=== PATIENT | male | born 1980 | race African-American/Black ===

== ENCOUNTER 2016-12-16 14:35 | Emergency (ER) | payer OTHER ==
[2016-12-16 14:52] VITALS: BP 138/73; PULSE 95; TEMP 98.5; BMI 38.2
[2016-12-16] MEDS ORDERED: IBUPROFEN 600 MG TABLET (FP) PO ONE (15:28)
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
== END 2016-12-16 15:56 | disposition home or self-care (01) ==
LOC: JERFT 14:35
DX: S89.82XA Other specified injuries of left lower leg, initial encounter (principal); V43.52XA Car driver injured in collision with other type car in traffic accident, initial encounter; Y92.414 Local residential or business street as the place of occurrence of the external cause; Y93.89 Activity, other specified; Y99.8 Other external cause status; E10.9 Type 1 diabetes mellitus without complications; Z79.4 Long term (current) use of insulin
CPT/HCPCS: 99281-25

== ENCOUNTER 2018-08-09 20:07 | Emergency (ER) | payer BC ==
--- NOTE | 2018-08-09 20:13 | PDOC ---
History of Present Illness - General History Source: Patient Exam Limitations: No Limitations - History of Present Illness Initial Comments: 08/09/18 20:30 The patient is a 38-year-old male with a past medical history significant for HTN and IDDM (compliant with Novolog) presents to the emergency department with nausea and vomiting. The patient presents with 2 days of nausea and NBNB, clear vomiting. The patient reports he has difficulty keeping down food. The patient reports associated symptoms of abdominal pain. Denies urinary symptoms, testicular pain, diarrhea, fever, chills, sore throat. Denies sick contact. Denies admission for DKA. Allergies: NKDA Social history: None reported PCP: Devin Akins MD <Jennifer Sinha - Last Filed: 08/09/18 20:30> <Kathleen Judd - Last Filed: 08/09/18 23:18> - General Chief Complaint: Nausea/Vomiting Stated Complaint: NAUSEA/VOMITING Time Seen by Provider: 08/09/18 20:13 Past History <Jennifer Sinha - Last Filed: 08/09/18 20:30> - Past Medical History COPD: No Thyroid Disease: No - Suicide/Smoking/Psychosocial Hx Smoking History: Never smoked Have you smoked in the past 12 months: No Hx Alcohol Use: No Drug/Substance Use Hx: No Substance Use Type: None <Kathleen Judd - Last Filed: 08/09/18 23:18> - Past Medical History Allergies/Adverse Reactions: Allergies Allergy/AdvReac Type Severity Reaction Status Date / Time No Known Allergies Allergy Verified 04/28/18 17:42 Home Medications: Ambulatory Orders Insulin (Levemir) [Levemir Vial] 46 unit SQ DAILY 12/16/16 Insulin (Novolog) [Novolog -] 0 units SQ ASDIR 12/16/16 Ondansetron HCl [Zofran] 4 mg PO TID PRN #6 tablet 08/09/18 Review of Systems - Review of Systems Able to Perform ROS?: Yes Comments:: 08/09/18 20:30 GENERAL/CONSTITUTIONAL: No fever or chills. No weakness. HEAD, EYES, EARS, NOSE AND THROAT: No change in vision. No ear pain or discharge. No sore throat. CARDIOVASCULAR: No chest pain or shortness of breath. RESPIRATORY: No cough, wheezing, or hemoptysis. GASTROINTESTINAL: +Nausea and vomiting. +abdominal pain. No diarrhea or constipation. GENITOURINARY: No dysuria, frequency, or change in urination. MUSCULOSKELETAL: No joint or muscle swelling or pain. No neck or back pain. SKIN: No rash NEUROLOGIC: No headache, vertigo, loss of consciousness, or change in strength/ sensation. ENDOCRINE: No increased thirst. No abnormal weight change. HEMATOLOGIC/LYMPHATIC: No anemia, easy bleeding, or history of blood clots. ALLERGIC/IMMUNOLOGIC: No hives or skin allergy. <Jennifer Sinha - Last Filed: 08/09/18 20:30> *Physical Exam - Vital Signs Last Vital Signs Temp Pulse Resp BP Pulse Ox 97.9 F 109 H 16 135/90 100 08/09/18 20:11 08/09/18 20:11 08/09/18 20:11 08/09/18 20:11 08/09/18 20:11 - Physical Exam Comments: 08/09/18 20:34 GENERAL: Awake, alert, and fully oriented, in no acute distress LUNGS: Breath sounds equal, clear to auscultation bilaterally. No wheezes, and no crackles HEART: Regular rate and rhythm, normal S1 and S2, no murmurs, rubs or gallops ABDOMEN: Soft, nontender and nondistended. NEUROLOGICAL: Cranial nerves II through XII grossly intact. Normal speech, normal gait SKIN: no rashes. <Jennifer Sinha - Last Filed: 08/09/18 20:30> Moderate Sedation - Procedure Monitoring Vital Signs: Procedure Monitoring Vital Signs Temperature 97.9 F 08/09/18 20:11 Pulse Rate 109 H 08/09/18 20:11 Respiratory Rate 16 08/09/18 20:11 Blood Pressure 135/90 08/09/18 20:11 O2 Sat by Pulse Oximetry (%) 100 08/09/18 20:11 <Jennifer Sinha - Last Filed: 08/09/18 20:30> ED Treatment Course - LABORATORY CBC & Chemistry Diagram: 08/09/18 20:25 08/09/18 20:25 <Kathleen Judd - Last Filed: 08/09/18 23:18> Medical Decision Making - Medical Decision Making 08/09/18 21:54 Pt presents to the ED complaining of a two day history of non bloody non billious vomiting, without fever, abdominal pain or diarrhea. States that he has been compliant with his insulin. Labs show severe hyperglycemia without DKA. Will treat with IV hydration and insulin, treat nausea with zofran and reassess. Will likely discharge home if symptoms improve and hyperglycemia resolves. <Kathleen Judd - Last Filed: 08/09/18 23:18> *DC/Admit/Observation/Transfer - Attestations Scribe Attestion: 08/09/18 20:32 Documentation prepared by Jennifer Sinha, acting as manager medical device for Kathleen Judd MD. <Jennifer Sinha - Last Filed: 08/09/18 20:30> - Discharge Dispostion Decision to Admit order: No <Kathleen Judd - Last Filed: 08/09/18 23:18> Diagnosis at time of Disposition: Nausea and vomiting Qualifiers: Vomiting type: unspecified Vomiting Intractability: non-intractable Qualified Code(s): R11.2 - Nausea with vomiting, unspecified - Discharge Dispostion Disposition: HOME Condition at time of disposition: Good - Referrals Referrals: Devin Yeager MD [Primary Care Provider] - - Patient Instructions Printed Discharge Instructions: DI for Nausea -- Adult Additional Instructions: you came to the ED for nausea and vomiting. This is most likely caused by a virus. Your blood sugar was also very high, but came down after we gave you fluids and insulin in the ED. You should return to the ED for severe nausea and vomiting that doesn't resolve with the medication prescribed, fever, severe abdominal pain, bloody vomit or stool, other new or worsening symptoms. Make sure that you follow up with your doctor on Saturday. - Post Discharge Activity Forms/Work/School Notes: Back to Work
[2018-08-09] MEDS ORDERED: SODIUM CHLORIDE 0.9% 500 ML INFUS.BAG IV ONE ×3 (20:25→22:39)
[2018-08-09] MEDS ORDERED: ONDANSETRON 4 MG/2 ML VIAL IVPUSH ONE (20:25)
[2018-08-09 20:34] VITALS: BP 135/90; PULSE 109; TEMP 97.9; BMI 28.8
[2018-08-09] MEDS ORDERED: ONDANSETRON 4 MG/2 ML VIAL ONE (20:35)
[2018-08-09 21:01] LABS: BASO % 1.9 % (0-2.0); EOS % 0.1 % (0-4.5); HEMATOCRIT 45.2 % (35.4-49); HEMOGLOBIN 14.9 GM/dl (11.7-16.9); LYMPH % 14.2 % (8-40); MCH 28.5 pg (25.7-33.7); MEAN CELL VOLUME 86.3 fl (80-96); MEAN PLT VOLUME 9.3 fl (7.5-11.1); MONO % 5.2 % (3.8-10.2); NEUT % 78.6 % (42.8-82.8); PLATELET COUNT 403 K/MM3 (134-434); RBC 5.24 M/mm3 (4.00-5.60); RDW 11.3 % (11.9-15.9); WHITE BLOOD COUNT 10.9 K/mm3 (4.0-10.8)
[2018-08-09 21:17] LABS: ALBUMIN 4.6 g/dl (3.5-5.0); ALK PHOS 159 U/L (32-92); ANION GAP 15 MMOL/L (8-16); BILIRUBIN,TOTAL 1.7 mg/dl (0.2-1.0); BLOOD UREA NITROGEN 24 mg/dl (7-18); CALCIUM 9.9 mg/dl (8.4-10.2); CHLORIDE 86 mmol/L (98-107); CO2 28 mmol/L (22-28); CREATININE 1.2 mg/dl (0.6-1.3); POTASSIUM 4.4 mmol/L (3.5-5.1); SGOT/AST 21 U/L (10-42); SGPT/ALT 20 U/L (10-40); SODIUM 129 mmol/L (136-145); TOT PROT 8.9 g/dl (6.4-8.3)
[2018-08-09 21:26] LABS: GLUCOSE,RANDOM 508 mg/dl (74-106)
[2018-08-09] MEDS ORDERED: INSULIN REGULAR HUMAN 100 UNITS/ML *VIAL IVPUSH ONE (21:30)
[2018-08-09] MEDS ORDERED: INSULIN REGULAR HUMAN 100 UNITS/ML *VIAL ONE (21:34)
[2018-08-09 21:38] LABS: ACETONE SERUM NEGATIVE (NEGATIVE)
[2018-08-09] MEDS ORDERED: HEMOQUE TEST 1 EACH EACH ONE (22:33)
[2018-08-09 22:36] LABS: LIPASE 279 U/L (73-393)
[2018-08-09] MEDS ORDERED: MAG HYDROX/AL HYDROX/SIMETH 30 ML UNIT-DOSE CUP PO ONE (23:13)
[2018-08-09] MEDS ORDERED: MAG HYDROX/AL HYDROX/SIMETH 30 ML UNIT-DOSE CUP ONE (23:16)
== END 2018-08-09 23:24 | disposition home or self-care (01) ==
LOC: FER 20:07
PROC: 3E0337Z Introduction of Electrolytic and Water Balance Substance into Peripheral Vein, Percutaneous Approach (ICD-10-PCS; principal; 2018-08-09)
PROC: 3E033VG Introduction of Insulin into Peripheral Vein, Percutaneous Approach (ICD-10-PCS; 2018-08-09)
PROC: 3E033GC Introduction of Other Therapeutic Substance into Peripheral Vein, Percutaneous Approach (ICD-10-PCS; 2018-08-09)
DX: R11.2 Nausea with vomiting, unspecified (principal)
CPT/HCPCS: 36415; 80053; 82009; 82962; 83690; 85025; 99283-25

== ENCOUNTER 2019-03-11 15:41 | Inpatient (IN) | payer BC ==
--- NOTE | 2019-03-11 16:02 | PDOC ---
History of Present Illness - General Chief Complaint: Nausea/Vomiting Stated Complaint: VOMITING Time Seen by Provider: 03/11/19 15:46 History Source: Patient Exam Limitations: No Limitations - History of Present Illness Initial Comments: 03/11/19 15:57 Michael Landeros is a 39M with PMH IDDM presenting with 2 days nausea and vomiting. Reports have over 10 episodes of vomiting over the last 2 days starting at 4AM yesterday. Vomit is non-bloody and appears like prior meal. Last meal was spaghetti cooked at home by his mother, denies anyone else at home feeling similar symptoms or other sick contacts. Has had 2 loose stools today, as well as abdominal pain in the epigastric region. Denies headaches, fever/chills. chest pain, SOB, urinary sx. Past History - Past Medical History Allergies/Adverse Reactions: Allergies Allergy/AdvReac Type Severity Reaction Status Date / Time No Known Allergies Allergy Verified 03/11/19 15:44 Home Medications: Ambulatory Orders Amlodipine Besylate [Norvasc -] 10 mg PO DAILY 03/11/19 Atorvastatin Ca [Lipitor] 40 mg PO HS 03/11/19 Delafloxacin Meglumine [Baxdela] 450 mg PO DAILY 03/11/19 Hydrochlorothiazide [Hctz -] 12.5 mg PO DAILY 03/11/19 Lisinopril [Prinivil -] 40 mg PO DAILY 03/11/19 COPD: No Diabetes: Yes HTN: Yes Thyroid Disease: No - Suicide/Smoking/Psychosocial Hx Smoking History: Never smoked Have you smoked in the past 12 months: No Information on smoking cessation initiated: No Hx Alcohol Use: No Drug/Substance Use Hx: No Substance Use Type: None Review of Systems - Review of Systems Able to Perform ROS?: Yes Constitutional: No: Chills, Fever, Weakness HEENTM: No: Blurred Vision, Recent change in vision, Tinnitus Respiratory: No: Cough, Orthopnea, Shortness of Breath Cardiac (ROS): No: Chest Pain, Edema, Lightheadedness, Palpitations ABD/GI: Yes: Diarrhea (2 episodes liquid stools), Nausea, Vomiting (non-bloody non-bilious) : No: Burning, Dysuria, Discharge, Frequency, Hematuria Musculoskeletal: No: Back Pain, Joint Pain, Muscle Pain Integumentary: Yes: Other (Boil to RLE, seen by lineworker). No: Bruising, Erythema Neurological: Yes: Tremors. No: Headache, Numbness, Paresthesia Endocrine: No: Symptoms Reported Hematologic/Lymphatic: No: Symptoms Reported All Other Systems: Reviewed and Negative *Physical Exam - Vital Signs Last Vital Signs Temp Pulse Resp BP Pulse Ox 97.7 F 79 18 140/94 100 03/11/19 15:44 03/11/19 15:44 03/11/19 15:44 03/11/19 15:44 03/11/19 15:44 - Physical Exam General Appearance: Yes: Nourished, Appropriately Dressed, Mild Distress HEENT: positive: EOMI, Normal Voice, Symmetrical, Pharynx Normal. negative: Scleral Icterus (R), Scleral Icterus (L), Rhinorrhea Neck: positive: Supple. negative: Tender, Lymphadenopathy (R), Lymphadenopathy (L) Respiratory/Chest: positive: Lungs Clear, Normal Breath Sounds. negative: Chest Tender, Respiratory Distress, Crackles, Rales, Rhonchi, Wheezing, Dullness Cardiovascular: positive: Regular Rhythm, Regular Rate. negative: Edema, Murmur Gastrointestinal/Abdominal: positive: Normal Bowel Sounds, Tender (tenderness to deep palpation epigastric region, negative Aguayo's sign, no signs of hernia or organomegaly), Flat, Soft. negative: Organomegaly Musculoskeletal: positive: Normal Inspection. negative: CVA Tenderness, Decreased Range of Motion Extremity: positive: Normal Capillary Refill, Normal Range of Motion, Other (R foot wrapped in bandages). negative: Tender, Pedal Edema, Swelling Integumentary: positive: Normal Color, Dry, Cold Neurologic: positive: Fully Oriented, Alert, Normal Mood/Affect, Normal Response , Other (Moving all extremities spontaneously, no focal deficits noted.) ED Treatment Course - LABORATORY CBC & Chemistry Diagram: 03/11/19 16:20 03/11/19 16:20 Medical Decision Making - Medical Decision Making 03/11/19 16:16 Michael Landeros is a 39M with PMH IDDM presenting with 2 days nausea and vomiting. Given 2 day course without fevers, likely gastroenteritis 2/2 something he has eaten recently. Ddx includes pancreatitis, DKA given IDDM status, cholecystitis/ cholangitis/biliary colic. Will evaluate via: CBC CMP lipase serum acetone UA Treatment for nausea/vomitinL NS bolus Maalox 30mg if tolerated famotidine 20mg IV Zofran 4mg IV Will re-evaluate after IV fluids and medications. 03/11/19 18:11 Labs grossly normal, no DKA, no pancreatitis. Still having colicky epigastric pain concerning for gallbladder pathology despite normal LFTs. RUQ US ordered, shows anterior wall thickening and pericholecystic fluid consistent with cholecysitis without choledocholithiasis. Consult placed with Dr. Flores, recommends IVAbx, NPO, and tx to [facility]. 03/11/19 19:04 Patient to be transferred to [facility] for surgical evaluation, has PAs to prep ER first thing in the AM per Dr. Flores. Will be admitted under Dr. Ojeda. *DC/Admit/Observation/Transfer Diagnosis at time of Disposition: Cholecystitis Nausea and vomiting Qualifiers: Vomiting type: unspecified Vomiting Intractability: non-intractable Qualified Code(s): R11.2 - Nausea with vomiting, unspecified - Discharge Dispostion Decision to Admit order: Yes - Referrals - Patient Instructions - Post Discharge Activity
[2019-03-11] MEDS ORDERED: MAG HYDROX/AL HYDROX/SIMETH -MYLANTA- ORAL SUSPENSION PO ONE (16:09)
[2019-03-11] MEDS ORDERED: FAMOTIDINE 20 MG/50 ML IVPB 20 MG/50 ML MG IVPB ONE ×2 (16:09→16:13)
[2019-03-11] MEDS ORDERED: SODIUM CHLORIDE 1,000 ML IV STA (16:10)
[2019-03-11] MEDS ORDERED: ONDANSETRON 4 MG/2 ML VIAL IVPUSH ONE (16:11)
[2019-03-11] MEDS ORDERED: MAG HYDROX/AL HYDROX/SIMETH 30 ML UNIT-DOSE CUP ONE (16:13)
--- NOTE | 2019-03-11 16:13 | PDOC ---
Attending Attestation - Resident Resident Name: Michael Wilson - ED Attending Attestation I have performed the following: I have examined & evaluated the patient, The case was reviewed & discussed with the resident, I agree w/resident's findings & plan - HPI HPI: 03/11/19 16:09 39 YOM with h/o DM2, presenting with nausea, vomiting, loose BM x 2 days beginning yesterday. +epigastric AP. unable to tolerate PO intake. +suspicious food intake,mother's spaghetti meatballs. no travel. no other sick contacts. no f/c, cp, sob. - Physicial Exam PE: 03/11/19 16:11 Agree with the resident's HPI and PE as documented in the electronic medical record. awake, alert, moderate distress 2/2 vomiting and retching. EOMI, PERRL, nl conjunctiva, anicteric; neck supple. lungs clear, RRR, abdomen soft +epigastric TTP. Back nontender. no CVAT. TRUJILLO x4, no focal neuro deficits. No peripheral edema. normal color for ethnicity, WWP. 03/12/19 07:54 - Medical Decision Making 03/11/19 16:10 See HPI for details. Prior notes reviewed, including admissions, discharges and consultations. Vital signs reviewed, wnl. Vital Signs Temp Pulse Resp BP Pulse Ox 97.7 F 79 18 140/94 100 03/11/19 15:44 03/11/19 15:44 03/11/19 15:44 03/11/19 15:44 03/11/19 15:44 DDx abdominal pain: Renal colic, biliary colic, metabolic/electrolyte derangements. GERD, PUD, esophageal spasm, pancreatitis, hepatitis, constipation , colitis, gastroenteritis, cholecystitis, UTI, pyelonephritis, hernia, DKA, HHS , dehydration. laboratory results and imaging reviewed, basic labs and lytes wnl, notable for neg ketones, no AG, so doubt DKA. LFTs/lipase_normal, reassuring ED course -interventions: IVF, zofran, analgesia, pepcid, Maalox, reassess - biliary sono acute cholecystitis, acalculus. - IV flagyl and ceftriaxone, empiric abx - surg cs with Dr Flores, keep NPO, will see in am, further imaging as necessary , medical management and subsequently determine if surgery admit for acute acalculus cholecystitis, surgical and medical management, NPO, abx, pain control, IVF and hydration supportive care admit to Dr Ojeda, s/o to [facility] 03/12/19 07:55
[2019-03-11] MEDS ORDERED: ONDANSETRON 4 MG/2 ML VIAL ONE (16:14)
[2019-03-11] MEDS ORDERED: ACETAMINOPHEN 1000 MG/100 ML VIAL (NON FORMULARY) IVPB ONE (16:30)
[2019-03-11] MEDS ORDERED: ACETAMINOPHEN INJECTION 100 ML IVPB ONE (16:31)
[2019-03-11 16:51] LABS: BASO % 1.6 % (0-2.0); HEMATOCRIT 39.1 % (35.4-49); LYMPH % 13.9 % (8-40); MCH 29.1 pg (25.7-33.7); MCHC 33.3 g/dl (32.0-35.9); MEAN CELL VOLUME 87.4 fl (80-96); MONO % 4.8 % (3.8-10.2); NEUT % 79.7 % (42.8-82.8); PLATELET COUNT 317 K/MM3 (134-434); RBC 4.47 M/mm3 (4.00-5.60); RDW 11.4 % (11.9-15.9); WHITE BLOOD COUNT 7.7 K/mm3 (4.0-10.8)
[2019-03-11 16:53] LABS: ALBUMIN 4.4 g/dl (3.4-5.0); ALK PHOS 106 U/L (45-117); ANION GAP 8 MMOL/L (8-16); CALCIUM 9.6 mg/dl (8.5-10); CHLORIDE 98 mmol/L (98-107); CO2 31 mmol/L (21-32); GLUCOSE,RANDOM 189 mg/dl (74-106); POTASSIUM 3.4 mmol/L (3.5-5.1); SGOT/AST 19 U/L (15-37); SGPT/ALT 19 U/L (13-61); SODIUM 137 mmol/L (136-145); TOT PROT 8.3 g/dl (6.4-8.2)
[2019-03-11 16:56] LABS: ACETONE SERUM NEGATIVE (NEGATIVE)
[2019-03-11] MEDS ORDERED: CEFTRIAXONE 1,000 MG in DEXTROSE 5%-WATER - 50 ML IVPB ONE (17:54)
[2019-03-11] MEDS ORDERED: cefTRIAXone SODIUM 1 GM VIAL ONE (18:09)
[2019-03-11] MEDS ORDERED: morphine CARPU-JECT 4 MG/1 ML DISP.SYRIN IVPUSH ONE (18:40)
[2019-03-11] MEDS ORDERED: morphine SULFATE 4 MG/ML VIAL ONE (18:44)
[2019-03-11] MEDS ORDERED: METOCLOPRAMIDE HCL INJECTION 10 MG/2 ML VIAL IVPB ONE (19:09)
[2019-03-11] MEDS ORDERED: METOCLOPRAMIDE HCL INJECTION 10 MG/2 ML VIAL ONE (19:18)
--- NOTE | 2019-03-11 19:22 | HP ---
CHIEF COMPLAINT: Abdominal pain PCP/Endocrine: Dr. Devin Yeager, [facility] HISTORY OF PRESENT ILLNESS: 39 year-old male with a PMH significant for HTN and Type II IDDM (x 10 years), presented to the ED for evaluation of nausea, vomiting and abdominal pain. 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 Developed right sided flank pain, nausea and vomiting. The pain migrated to the mid upper abdomen. Patient describes pain as intermittent and severe. He has vomited numerous times, unable to keep any type of food or liquid down. Emesis is non-bloody, non-bilious. Denies fever, sweats , chills. 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; lives alone; single Smoking: never Alcohol: occasional Drugs: no Family History: Mother 50s a&w; father 50s a&w; half siblings a&w; uncle and grandmother with DM Allergies No Known Allergies Allergy (Verified 03/11/19 15:44) HOME MEDICATIONS: Home Medications Medication Instructions Recorded Amlodipine Besylate [Norvasc -] 10 mg PO DAILY 03/11/19 Atorvastatin Ca [Lipitor] 40 mg PO HS 03/11/19 Delafloxacin Meglumine [Baxdela] 450 mg PO DAILY 03/11/19 Hydrochlorothiazide [Hctz -] 12.5 mg PO DAILY 03/11/19 Lisinopril [Prinivil -] 40 mg PO DAILY 03/11/19 REVIEW OF SYSTEMS CONSTITUTIONAL: Absent: fever, chills, diaphoresis, generalized weakness, malaise, loss of appetite, weight change HEENT: Absent: rhinorrhea, nasal congestion, throat pain, throat swelling, difficulty swallowing, mouth swelling, ear pain, eye pain, visual changes CARDIOVASCULAR: Absent: chest pain, syncope, palpitations, irregular heart rate, lightheadedness , peripheral edema RESPIRATORY: Absent: cough, shortness of breath, dyspnea with exertion, orthopnea, wheezing, stridor, hemoptysis GASTROINTESTINAL: +abdominal pain, nausea, vomiting, diarrhea Absent: abdominal pain, abdominal distension, nausea, vomiting, diarrhea, constipation, melena, hematochezia GENITOURINARY: Absent: dysuria, frequency, urgency, hesitancy, hematuria, flank pain, genital pain MUSCULOSKELETAL: Absent: myalgia, arthralgia, joint swelling, back pain, neck pain SKIN: +right heel blister Absent: rash, itching, pallor HEMATOLOGIC/IMMUNOLOGIC: Absent: easy bleeding, easy bruising, lymphadenopathy, frequent infections ENDOCRINE: Absent: unexplained weight gain, unexplained weight loss, heat intolerance, cold intolerance NEUROLOGIC: Absent: headache, focal weakness or paresthesias, dizziness, unsteady gait, seizure, mental status changes, bladder or bowel incontinence PSYCHIATRIC: Absent: anxiety, depression, suicidal or homicidal ideation, hallucinations. PHYSICAL EXAMINATION Vital Signs - 24 hr 03/11/19 03/11/19 15:44 17:04 Temperature 97.7 F Pulse Rate 79 Respiratory 18 Rate Blood Pressure 140/94 O2 Sat by Pulse 100 100 Oximetry (%) GENERAL: Awake, alert, and fully oriented, in no acute distress. HEAD: Normal with no signs of trauma. EYES: Pupils equal, round and reactive to light, extraocular movements intact, sclera anicteric, conjunctiva clear. No lid lag. LUNGS: Breath sounds equal, clear to auscultation bilaterally. No wheezes, and no crackles. No accessory muscle use. HEART: Regular rate and rhythm, S1, S2, S3 ABDOMEN: Soft, nontender, not distended, hypoactive bowel sounds, no guarding, no rebound tenderness UPPER EXTREMITIES: 2+ pulses, warm, well-perfused. No cyanosis. No clubbing. No peripheral edema. LOWER EXTREMITIES: 2+ pulses, warm, well-perfused. No calf tenderness. No peripheral edema. NEUROLOGICAL: Cranial nerves II-XII intact. Normal speech. Normal gait. PSYCHIATRIC: Cooperative. Good eye contact. Appropriate mood and affect. SKIN: Wound right heel ~4cm x 4cm, skin excised; wound is clean, no erythema, no warmth, no drainage Laboratory Results - last 24 hr 03/11/19 03/11/19 03/11/19 16:20 16:20 16:20 WBC 7.7 RBC 4.47 Hgb 13.0 Hct 39.1 MCV 87.4 MCH 29.1 MCHC 33.3 RDW 11.4 L Plt Count 317 D MPV 9.0 Absolute Neuts (auto) 6.1 Neutrophils % 79.7 Lymphocytes % 13.9 Monocytes % 4.8 Eosinophils % 0.0 D Basophils % 1.6 Sodium 137 Potassium 3.4 L Chloride 98 Carbon Dioxide 31 Anion Gap 8 BUN 10.0 Creatinine 1.0 Est GFR (CKD-EPI)AfAm 110.94 Est GFR (CKD-EPI)NonAf 95.72 Random Glucose 189 H Calcium 9.6 Total Bilirubin 2.0 H AST 19 ALT 19 Alkaline Phosphatase 106 Total Protein 8.3 H Albumin 4.4 Lipase 147 Acetone, Qual Negative ASSESSMENT/PLAN 39 year-old male with a PMH significant for HTN, and IDDM, admitted for possible acute cholecystitis. Possible acute alcalculous cholecystitis --03/11 US: mild diffuse gallbladder wall thickening and possible trace pericholecystic fluid accumunlation suggestive of acute cholecystitis; no definite sonographic evidence of cholelithiasis; CBD unremarkable 0.4cm --total bili elevated. LFTs in am --start Zosyn --HIDA scan ordered --surgery Dr. Flores will follow Hypertension --continue lisinopril, amlodipine, HCTZ IDDM --Novolog sliding scale coverage while NPO --patient states his last A1C was 10 --takes Levemir 46U at night; will hold while NPO --A1C pending Blister right heel --developed while in [place] walking on hot pavement --seen by electrical prospecting engineer Dr. Pena who excised blister --was started on delafloxacin last Saturday but patient has not tolerated anything PO so has not been taking --Zosyn as above --topical wound care with silvadene daily, covered with Allevyn heel dressing FEN Fluids: NS @ 125mL/hr Electrolytes: replete as indicated Nutrition: NPO DVT prophylaxis: SCDs, avoid chemical prophylaxis for possible surgical intervention Dispo: continues to require inpatient care. Visit type - Emergency Visit Emergency Visit: Yes Care time: The patient presented to the Emergency Department on the above date and was hospitalized for further evaluation of their emergent condition. - New Patient This patient is new to me today: Yes Date on this admission: 03/11/19 - Critical Care Critical Care patient: No
[2019-03-11 19:47] LABS: INR 1.34 (0.82-1.09); PROTHROMBIN TIME (PATIENT) 14.9 SEC (10.2-13.0)
[2019-03-11] MEDS ORDERED: ONDANSETRON 4 MG/2 ML VIAL IVPUSH PRN (19:53)
[2019-03-11] MEDS ORDERED: SODIUM CHLORIDE 1,000 ML IV SCH (20:00)
[2019-03-11] MEDS ORDERED: PIPERACILLIN/TAZOBACTAM 4.5 GM VIAL IVPB ONE (20:46)
[2019-03-11] MEDS ORDERED: PIPERACILLIN/TAZOB 4.5 GM 4.5 GM in DEXTROSE 5%-WATER 100 ML IVPB SCH (21:00)
[2019-03-11] MEDS ORDERED: morphine CARPU-JECT 2 MG/1 ML DISP.SYRIN IVPUSH PRN (21:02)
[2019-03-11] MEDS ORDERED: morphine SULFATE 4 MG/ML VIAL IVPUSH PRN (21:04)
[2019-03-11] MEDS: PIPERACILLIN/TAZOB 4.5 GM 4.5 GM in DEXTROSE 5%-WATER 100 ML IVPB SCH (21:08)
[2019-03-11] MEDS: ATORVASTATIN CA 40 MG TABLET (FP) PO SCH (22:19)
[2019-03-11] MEDS: KCL 10 MEQ IVPB 10 MEQ/100 ML INFUS.BAG IVPB SCH ×2 (22:19→23:15)
[2019-03-11] MEDS: INSULIN SLIDING SCALE (NOVOLOG) 1 VIAL SQ SCH (22:21)
[2019-03-11 23:00] VITALS: BMI 29.3
[2019-03-12] MEDS: KCL 10 MEQ IVPB 10 MEQ/100 ML INFUS.BAG IVPB SCH ×4 (00:37→16:20)
[2019-03-12] MEDS ORDERED: DEXTROSE 5%-WATER 100 ML IVPB ONE ×2 (01:15→09:07)
[2019-03-12] MEDS ORDERED: PIPERACILLIN/TAZOBACTAM 4.5 GM VIAL IVPB ONE ×2 (01:15→09:08)
[2019-03-12] MEDS: HEPARIN NA (PORCINE) 5,000 UNITS/ML 1ML VIAL SQ SCH ×3 (02:29→18:20)
[2019-03-12] MEDS: PIPERACILLIN/TAZOB 4.5 GM 4.5 GM in DEXTROSE 5%-WATER 100 ML IVPB SCH ×2 (02:30→09:15)
[2019-03-12] MEDS: INSULIN SLIDING SCALE (NOVOLOG) 1 VIAL SQ SCH ×4 (07:25→21:37)
--- NOTE | 2019-03-12 07:45 | CONSULT ---
- Consultation REQUESTING PROVIDER: CONSULT REQUEST: We have been asked to surgically evaluate this patient for cholecystitis. PCP:Gwen Ojeda HISTORY OF PRESENT ILLNESS: Michael Landeros is a 39M with PMH IDDM presents with 2 days nausea and vomiting. Patient states he has had several episodes of vomiting over the last 2 days starting at 4AM Saturday. Vomit is non-bloody and appears like prior meal. Last meal was spaghetti cooked at home by his mother, denies anyone else at home feeling similar symptoms or other sick contacts. He also had 2 loose stools, as well as abdominal pain in the epigastric region. Denies headaches, fever/chills. chest pain, SOB, urinary sx. Past History - Past Medical History Allergies/Adverse Reactions: Allergies Allergy/AdvReac Type Severity Reaction Status Date / Time No Known Allergies Allergy Verified 03/11/19 15:44 Home Medications: Amlodipine Besylate [Norvasc -] 10 mg PO DAILY 03/11/19 Atorvastatin Ca [Lipitor] 40 mg PO HS 03/11/19 Delafloxacin Meglumine [Baxdela] 450 mg PO DAILY 03/11/19 Hydrochlorothiazide [Hctz -] 12.5 mg PO DAILY 03/11/19 Lisinopril [Prinivil -] 40 mg PO DAILY 03/11/19 COPD: No Diabetes: Yes HTN: Yes Thyroid Disease: No - Suicide/Smoking/Psychosocial Hx Smoking History: Never smoked Have you smoked in the past 12 months: No Information on smoking cessation initiated: No Hx Alcohol Use: No Drug/Substance Use Hx: No Substance Use Type: None Review of Systems Able to Perform ROS?: Yes Constitutional: No: Chills, Fever, Weakness HEENTM: No: Blurred Vision, Recent change in vision, Tinnitus Respiratory: No: Cough, Orthopnea, Shortness of Breath Cardiac (ROS): No: Chest Pain, Edema, Lightheadedness, Palpitations ABD/GI: Yes: Diarrhea (2 episodes liquid stools), Nausea, Vomiting (non-bloody non-bilious) : No: Burning, Dysuria, Discharge, Frequency, Hematuria Musculoskeletal: No: Back Pain, Joint Pain, Muscle Pain Integumentary: Yes: Other (Boil to RLE, seen by ab initio etl developer). No: Bruising, Erythema Neurological: Yes: Tremors. No: Headache, Numbness, Paresthesia Endocrine: No: Symptoms Reported Hematologic/Lymphatic: No: Symptoms Reported All Other Systems: Reviewed and Negative PHYSICAL EXAM: GENERAL: Awake, alert, and fully oriented, in no acute distress. HEAD: Normal with no signs of trauma. EYES: sclera anicteric, conjunctiva clear. LUNGS: Unlabored resp on RA, No accessory muscle use. ABDOMEN: Obese, Soft, minimal TTP at RUQ, not distended, no guarding, no rebound, no masses. MUSCULOSKELETAL: moving all extremities without restriction NEUROLOGICAL: Normal speech, gait not observed. PSYCH: Cooperative. Good eye contact. Appropriate mood and affect. SKIN: Warm, dry, normal turgor, no rashes or lesions noted. Vital Signs Temperature 98.3 F 03/12/19 06:00 Pulse Rate 68 03/12/19 06:00 Respiratory Rate 18 03/12/19 06:00 Blood Pressure 120/67 03/12/19 06:00 O2 Sat by Pulse Oximetry (%) 97 03/12/19 06:00 Lab Results WBC 7.7 K/mm3 (4.0-10.8) 03/11/19 16:20 RBC 4.47 M/mm3 (4.00-5.60) 03/11/19 16:20 Hgb 13.0 GM/dl (11.7-16.9) 03/11/19 16:20 Hct 39.1 % (35.4-49) 03/11/19 16:20 MCV 87.4 fl (80-96) 03/11/19 16:20 MCHC 33.3 g/dl (32.0-35.9) 03/11/19 16:20 RDW 11.4 % (11.9-15.9) L 03/11/19 16:20 Plt Count 317 K/MM3 (134-434) D 03/11/19 16:20 Sodium 137 mmol/L (136-145) 03/11/19 16:20 Potassium 3.4 mmol/L (3.5-5.1) L 03/11/19 16:20 Chloride 98 mmol/L (98-107) 03/11/19 16:20 Carbon Dioxide 31 mmol/L (21-32) 03/11/19 16:20 Anion Gap 8 MMOL/L (8-16) 03/11/19 16:20 BUN 10.0 mg/dl (7-18) 03/11/19 16:20 Creatinine 1.0 mg/dl (0.55-1.3) 03/11/19 16:20 Random Glucose 189 mg/dl (74-106) H 03/11/19 16:20 Calcium 9.6 mg/dl (8.5-10) 03/11/19 16:20 Blood Type O POSITIVE 03/11/19 19:10 Antibody Screen Negative 03/11/19 19:10 INR 1.34 (0.82-1.09) H 03/11/19 19:10 U/S gallbladder suggests cholecystitis with no evidence of cholelithiasis Problem List - Problems (1) Cholecystitis Assessment/Plan: 39yo with suspected cholecystitis. -HIDA scan today r/o cholelithiasis - NPO -IV ABX -Fluids -pain control -Surgery team to follow Evaluation and plan discussed with Dr Flores Code(s): K81.9 - CHOLECYSTITIS, UNSPECIFIED
[2019-03-12 08:06] LABS: BASO % 0.8 % (0-2.0); EOS % 0.4 % (0-4.5); HEMATOCRIT 35.3 % (35.4-49); HEMOGLOBIN 11.6 GM/dl (11.7-16.9); LYMPH % 22.1 % (8-40); MCH 29.1 pg (25.7-33.7); MEAN CELL VOLUME 88.1 fl (80-96); MEAN PLT VOLUME 8.6 fl (7.5-11.1); MONO % 9.5 % (3.8-10.2); NEUT % 67.2 % (42.8-82.8); PLATELET COUNT 243 K/MM3 (134-434); RDW 11.6 % (11.9-15.9); WHITE BLOOD COUNT 6.4 K/mm3 (4.0-10.8)
[2019-03-12 08:17] LABS: ALBUMIN 3.5 g/dl (3.4-5.0); BILIRUBIN,DIRECT 0.3 mg/dL (0.0-0.2); BILIRUBIN,TOTAL 1.9 mg/dl (0.2-1); CALCIUM 8.8 mg/dl (8.5-10); MAGNESIUM 1.8 mg/dL (1.8-2.4); TOT PROT 6.8 g/dl (6.4-8.2)
[2019-03-12] MEDS: amLODIPine BESYLATE 10 MG TABLET (FP) PO SCH (09:15)
[2019-03-12] MEDS: LISINOPRIL 20 MG TABLET (FP) PO SCH (09:15)
[2019-03-12] MEDS: HYDROCHLOROTHIAZIDE 12.5 MG CAPSULE (FP) PO SCH (09:15)
[2019-03-12] MEDS: SILVER SULFADIAZINE 1% TOP CREAM 50 GM JAR TP SCH (10:06)
[2019-03-12] MEDS ORDERED: POTASSIUM CHLORIDE TABS 20 MEQ TABLET.ER (FP) PO ONE (10:49)
[2019-03-12] MEDS: POTASSIUM CHLORIDE TABS 20 MEQ TABLET.ER (FP) PO SCH ×2 (11:00→17:10)
--- NOTE | 2019-03-12 11:41 | EKG ---
Test Reason : Blood Pressure : / mmHG Vent. Rate : 074 BPM Atrial Rate : 074 BPM P-R Int : 106 ms QRS Dur : 072 ms QT Int : 390 ms P-R-T Axes : 058 079 -19 degrees QTc Int : 432 ms SINUS RHYTHM WITH SINUS ARRHYTHMIA WITH SHORT HI NONSPECIFIC T WAVE ABNORMALITY ABNORMAL ECG NO PREVIOUS ECGS AVAILABLE Confirmed by HAYES MARION MD ([id number]) on 03/12/2019 11:40:38 AM Referred By: Confirmed By:HAYES MARION MD
--- NOTE | 2019-03-12 14:25 | PN ---
Physical Exam: SUBJECTIVE: Patient seen and examined after returning from HIDA scan. Abdominal pain was 10/10 last night in ED, 4/10 this morning, presently no pain. No nausea , no vomiting, tolerating first meal of clears. OBJECTIVE: Vital Signs Period Temp Pulse Resp BP Sys/Monroy Pulse Ox Last 24 Hr 97.7 F-99.0 F 68-115 18-18 117-140/62-94 93-100 GENERAL: Awake, alert, and fully oriented, in no acute distress. LUNGS: Breath sounds equal, clear to auscultation bilaterally. No wheezes, and no crackles. No accessory muscle use. HEART: Regular rate and rhythm, S1, S2, S3 ABDOMEN: Soft, nontender, not distended, UPPER EXTREMITIES: 2+ pulses, warm, well-perfused. No cyanosis. No clubbing. No peripheral edema. LOWER EXTREMITIES: 2+ pulses, warm, well-perfused. No calf tenderness. No peripheral edema. NEUROLOGICAL: Cranial nerves II-XII intact. Normal speech. Laboratory Results - last 24 hr 03/11/19 03/11/19 03/11/19 07:20 16:20 16:20 WBC 7.7 RBC 4.47 Hgb 13.0 Hct 39.1 MCV 87.4 MCH 29.1 MCHC 33.3 RDW 11.4 L Plt Count 317 D MPV 9.0 Absolute Neuts (auto) 6.1 Neutrophils % 79.7 Lymphocytes % 13.9 Monocytes % 4.8 Eosinophils % 0.0 D Basophils % 1.6 PT with INR INR PTT (Actin FS) Sodium 137 Potassium 3.4 L Chloride 98 Carbon Dioxide 31 Anion Gap 8 BUN 10.0 Creatinine 1.0 Est GFR (CKD-EPI)AfAm 110.94 Est GFR (CKD-EPI)NonAf 95.72 POC Glucometer Random Glucose 189 H Hemoglobin A1c % Calcium 9.6 Magnesium Total Bilirubin 2.0 H Direct Bilirubin AST 19 ALT 19 Alkaline Phosphatase 106 Total Protein 8.3 H Albumin 4.4 Lipase Acetone, Qual Negative Blood Type O POSITIVE Antibody Screen 03/11/19 03/11/19 03/11/19 16:20 16:20 19:10 WBC RBC Hgb Hct MCV MCH MCHC RDW Plt Count MPV Absolute Neuts (auto) Neutrophils % Lymphocytes % Monocytes % Eosinophils % Basophils % PT with INR INR PTT (Actin FS) 29.7 Sodium Potassium Chloride Carbon Dioxide Anion Gap BUN Creatinine Est GFR (CKD-EPI)AfAm Est GFR (CKD-EPI)NonAf POC Glucometer Random Glucose Hemoglobin A1c % 7.4 H Calcium Magnesium Total Bilirubin Direct Bilirubin AST ALT Alkaline Phosphatase Total Protein Albumin Lipase 147 Acetone, Qual Blood Type Antibody Screen 03/11/19 03/11/19 03/11/19 19:10 19:10 22:21 WBC RBC Hgb Hct MCV MCH MCHC RDW Plt Count MPV Absolute Neuts (auto) Neutrophils % Lymphocytes % Monocytes % Eosinophils % Basophils % PT with INR 14.9 H INR 1.34 H PTT (Actin FS) Sodium Potassium Chloride Carbon Dioxide Anion Gap BUN Creatinine Est GFR (CKD-EPI)AfAm Est GFR (CKD-EPI)NonAf POC Glucometer 182 Random Glucose Hemoglobin A1c % Calcium Magnesium Total Bilirubin Direct Bilirubin AST ALT Alkaline Phosphatase Total Protein Albumin Lipase Acetone, Qual Blood Type O POSITIVE Antibody Screen Negative 03/12/19 03/12/19 03/12/19 06:29 07:20 07:20 WBC 6.4 RBC 4.00 Hgb 11.6 L Hct 35.3 L MCV 88.1 MCH 29.1 MCHC 33.0 RDW 11.6 L Plt Count 243 D MPV 8.6 Absolute Neuts (auto) 4.3 Neutrophils % 67.2 Lymphocytes % 22.1 D Monocytes % 9.5 D Eosinophils % 0.4 D Basophils % 0.8 PT with INR INR PTT (Actin FS) Sodium 141 Potassium 3.0 L Chloride 103 Carbon Dioxide 30 Anion Gap 8 BUN 9.0 Creatinine 1.0 Est GFR (CKD-EPI)AfAm 110.94 Est GFR (CKD-EPI)NonAf 95.72 POC Glucometer 84 Random Glucose 91 Hemoglobin A1c % Calcium 8.8 Magnesium 1.8 Total Bilirubin 1.9 H Direct Bilirubin 0.3 H AST 17 ALT 17 Alkaline Phosphatase 83 D Total Protein 6.8 Albumin 3.5 Lipase Acetone, Qual Blood Type Antibody Screen Active Medications Generic Name Dose Route Start Last Admin Trade Name Freq PRN Reason Stop Dose Admin Amlodipine Besylate 10 mg 03/12/19 10:00 03/12/19 09:15 Norvasc - PO 10 mg DAILY CED Administration Atorvastatin Calcium 40 mg 03/11/19 22:00 03/11/19 22:19 Lipitor - PO 40 mg HS CED Administration Heparin Sodium (Porcine) 5,000 unit 03/12/19 02:00 03/12/19 09:17 Heparin - SQ Not Given Q8H-IV CED Hydrochlorothiazide 12.5 mg 03/12/19 10:00 03/12/19 09:15 Hctz - PO 12.5 mg DAILY CED Administration Sodium Chloride 1,000 mls @ 125 mls/hr 03/11/19 20:00 03/11/19 21:08 Normal Saline - IV 125 mls/hr ASDIR CED Administration Piperacillin Sod/Tazobactam 100 mls @ 200 mls/hr 03/11/19 21:00 03/12/19 09: 15 Sod 4.5 gm/ Dextrose IVPB 03/12/19 15:29 200 mls/hr Q6H-IV CED Administration Piperacillin Sod/Tazobactam 100 mls @ 200 mls/hr 03/11/19 21:15 Sod 4.5 gm/ Dextrose IVPB Q6H-IV [facility] Protocol Insulin Aspart 1 vial 03/11/19 22:00 03/12/19 07:25 Novolog Vial Sliding Scale - SQ Not Given ACHS [facility] Protocol Lisinopril 40 mg 03/12/19 10:00 03/12/19 09:15 Prinivil PO 40 mg DAILY CED Administration Morphine Sulfate 4 mg 03/11/19 21:04 03/12/19 09:15 Morphine Sulfate IVPUSH 4 mg Q4H PRN Administration PAIN LEVEL 6-10 Ondansetron HCl 4 mg 03/11/19 19:53 Zofran Injection IVPUSH Q6H PRN NAUSEA AND/OR VOMITING Potassium Chloride 40 meq 03/12/19 11:00 K-Dur - PO 03/12/19 17:01 Q6H CED Silver Sulfadiazine 1 applic 03/12/19 10:00 03/12/19 10:06 Silvadene - TP 1 applic DAILY CED Administration ASSESSMENT/PLAN 39 year-old male with a PMH significant for HTN, and IDDM, admitted for possible acute cholecystitis. Possible acute alcalculous cholecystitis --03/11 US: mild diffuse gallbladder wall thickening and possible trace pericholecystic fluid accumulation suggestive of acute cholecystitis; no definite sonographic evidence of cholelithiasis; CBD unremarkable 0.4cm\ --03/12 HIDA: negative for acute cystic duct obstruction --total bili elevated, transaminases wnl --continue Zosyn (day #2) Hypertension --continue lisinopril, amlodipine, HCTZ IDDM --A1C 7.4 --Novolog sliding scale coverage --takes Levemir 46U at night; will hold while NPO Blister right heel --Zosyn as above --topical wound care with silvadene daily, covered with Allevyn heel dressing FEN Fluids: NS @ 75mL/hr Electrolytes: replete as indicated Nutrition: diabetic clears DVT prophylaxis: SCDs, subq heparin Dispo: continues to require inpatient care. Visit type - Emergency Visit Emergency Visit: Yes ED Registration Date: 03/11/19 Care time: The patient presented to the Emergency Department on the above date and was hospitalized for further evaluation of their emergent condition. - New Patient This patient is new to me today: No - Critical Care Critical Care patient: No
--- NOTE | 2019-03-12 16:36 | CON.ID ---
Consult Consult Specialty:: infectious diseases - Alcohol/Substance Use Hx Alcohol Use: No - Smoking History Smoking history: Never smoked Have you smoked in the past 12 months: No Home Medications - Allergies Allergies/Adverse Reactions: Allergies Allergy/AdvReac Type Severity Reaction Status Date / Time No Known Allergies Allergy Verified 03/11/19 15:44 - Home Medications Home Medications: Ambulatory Orders Amlodipine Besylate [Norvasc -] 10 mg PO DAILY 03/11/19 Atorvastatin Ca [Lipitor] 40 mg PO HS 03/11/19 Delafloxacin Meglumine [Baxdela] 450 mg PO DAILY 03/11/19 Hydrochlorothiazide [Hctz -] 12.5 mg PO DAILY 03/11/19 Lisinopril [Prinivil -] 40 mg PO DAILY 03/11/19 Physical Exam Vital Signs: Vital Signs Temperature 98.4 F 03/12/19 14:45 Pulse Rate 70 03/12/19 14:45 Respiratory Rate 18 03/12/19 14:45 Blood Pressure 142/80 03/12/19 14:45 O2 Sat by Pulse Oximetry (%) 100 03/12/19 14:45 Labs: CBC, BMP 03/12/19 07:20 03/12/19 07:20
[2019-03-12] MEDS ORDERED: SODIUM CHLORIDE 1,000 ML IV SCH (17:47)
[2019-03-12] MEDS: PIPERACILLIN/TAZOB 3.375 GM 3.375 GM in DEXTROSE 5%-WATER - 50 ML IVPB SCH (18:15)
--- NOTE | 2019-03-12 19:04 | PN ---
Progress Note (short form) - Note Progress Note: Attending Surgeon No c/o; tolerated clears VSS AF abdo-soft; flat and non tender HIDA- negative for cystic duct obstruction and therefore acute cholecystitis WBC normal LFT's and bili noted. IMP: No acute surgical issue PLAN: Advance diet as tolerated; should have outpatient GI w/u. Dony Flores MD FACS
[2019-03-12] MEDS: ACETAMINOPHEN 325 MG TABLET (FP) PO PRN (19:30)
[2019-03-12] MEDS: ATORVASTATIN CA 40 MG TABLET (FP) PO SCH (21:33)
[2019-03-13] MEDS ORDERED: PIPERACILLIN/TAZOBACTAM 3.375 GM VIAL IVPB ONE ×4 (01:18→23:43)
[2019-03-13] MEDS ORDERED: DEXTROSE 5%-WATER - 50 ML IVPB ONE ×4 (01:19→23:43)
[2019-03-13] MEDS: PIPERACILLIN/TAZOB 3.375 GM 3.375 GM in DEXTROSE 5%-WATER - 50 ML IVPB SCH ×3 (01:26→17:28)
[2019-03-13] MEDS: HEPARIN NA (PORCINE) 5,000 UNITS/ML 1ML VIAL SQ SCH ×3 (01:27→17:26)
[2019-03-13] MEDS: PIPERACILLIN/TAZOB 4.5 GM 4.5 GM in DEXTROSE 5%-WATER 100 ML IVPB SCH ×2 (08:35→08:36)
[2019-03-13] MEDS: INSULIN SLIDING SCALE (NOVOLOG) 1 VIAL SQ SCH ×4 (08:35→21:40)
[2019-03-13] MEDS ORDERED: PT OWN MED DRAWER 7, Y5N ONE (09:25)
[2019-03-13] MEDS: amLODIPine BESYLATE 10 MG TABLET (FP) PO SCH (09:50)
[2019-03-13] MEDS: SILVER SULFADIAZINE 1% TOP CREAM 50 GM JAR TP SCH (09:50)
[2019-03-13] MEDS: LISINOPRIL 20 MG TABLET (FP) PO SCH (09:50)
[2019-03-13] MEDS: HYDROCHLOROTHIAZIDE 12.5 MG CAPSULE (FP) PO SCH (09:50)
--- NOTE | 2019-03-13 10:09 | PN ---
Progress Note, Physician History of Present Illness: patient stable no new issues pain last night now ok - Current Medication List Current Medications: Active Medications Acetaminophen (Tylenol -) 650 mg PO Q6H PRN PRN Reason: PAIN LEVEL 1-5 Last Admin: 03/12/19 19:30 Dose: 650 mg Amlodipine Besylate (Norvasc -) 10 mg PO DAILY CED Last Admin: 03/13/19 09:50 Dose: 10 mg Atorvastatin Calcium (Lipitor -) 40 mg PO HS CED Last Admin: 03/12/19 21:33 Dose: 40 mg Heparin Sodium (Porcine) (Heparin -) 5,000 unit SQ Q8H-IV CED Last Admin: 03/13/19 09:49 Dose: 5,000 unit Hydrochlorothiazide (Hctz -) 12.5 mg PO DAILY CED Last Admin: 03/13/19 09:50 Dose: 12.5 mg Piperacillin Sod/Tazobactam (Sod 3.375 gm/ Dextrose) 50 mls @ 100 mls/hr IVPB Q8H-IV CED; Protocol Last Admin: 03/13/19 09:50 Dose: 100 mls/hr Sodium Chloride (Normal Saline -) 1,000 mls @ 75 mls/hr IV ASDIR CED Last Admin: 03/12/19 19:25 Dose: 75 mls/hr Insulin Aspart (Novolog Vial Sliding Scale -) 1 vial SQ ACHS [facility]; Protocol Last Admin: 03/13/19 08:35 Dose: Not Given Lisinopril (Prinivil) 40 mg PO DAILY [facility] Last Admin: 03/13/19 09:50 Dose: 40 mg Ondansetron HCl (Zofran Injection) 4 mg IVPUSH Q6H PRN PRN Reason: NAUSEA AND/OR VOMITING Silver Sulfadiazine (Silvadene -) 1 applic TP DAILY [facility] Last Admin: 03/13/19 09:50 Dose: 1 applic - Objective Vital Signs: Vital Signs Temperature 98.1 F 03/13/19 09:43 Pulse Rate 63 03/13/19 09:43 Respiratory Rate 18 03/13/19 09:43 Blood Pressure 134/70 03/13/19 09:43 O2 Sat by Pulse Oximetry (%) 98 03/13/19 09:43 Constitutional: Yes: No Distress, Calm Cardiovascular: Yes: Regular Rate and Rhythm Respiratory: Yes: Regular, CTA Bilaterally Gastrointestinal: Yes: Normal Bowel Sounds, Soft Musculoskeletal: Yes: WNL Extremities: Yes: WNL Neurological: Yes: Alert, Oriented Psychiatric: Yes: Alert, Oriented Labs: CBC, BMP 03/12/19 07:20 03/12/19 07:20 INR, PTT INR 1.34 (0.82-1.09) H 03/11/19 19:10 Assessment/Plan 39 year-old male with a PMH significant for HTN, and IDDM, admitted for possible acute cholecystitis. Possible acute alcalculous cholecystitis Hypertension IDD Blister right heel plan hida scan results noted if patient tolerates oral we can switch to oral abx
[2019-03-13 11:18] LABS: BILIRUBIN,TOTAL 2.4 mg/dl (0.2-1); CALCIUM 8.5 mg/dl (8.5-10); CREATININE 0.9 mg/dl (0.55-1.3); MAGNESIUM 1.8 mg/dL (1.8-2.4); TOT PROT 7.6 g/dl (6.4-8.2)
[2019-03-13 11:24] LABS: BASO % 0.8 % (0-2.0); EOS % 0.5 % (0-4.5); HEMATOCRIT 38.3 % (35.4-49); HEMOGLOBIN 12.7 GM/dl (11.7-16.9); LYMPH % 20.7 % (8-40); MCH 29.3 pg (25.7-33.7); MCHC 33.1 g/dl (32.0-35.9); MEAN CELL VOLUME 88.7 fl (80-96); MEAN PLT VOLUME 8.3 fl (7.5-11.1); MONO % 8.5 % (3.8-10.2); NEUT % 69.5 % (42.8-82.8); PLATELET COUNT 274 K/MM3 (134-434); POTASSIUM 2.7 mmol/L (3.5-5.1); RBC 4.32 M/mm3 (4.00-5.60); RDW 11.4 % (11.9-15.9); WHITE BLOOD COUNT 6.6 K/mm3 (4.0-10.8)
--- NOTE | 2019-03-13 12:14 | PN ---
Physical Exam: SUBJECTIVE: Patient seen and examined. Last night had right upper quadrant pain , better now. Had large watery bowel movement last night, another one today. Tolerating food, no nausea, no vomiting. OBJECTIVE: Vital Signs Period Temp Pulse Resp BP Sys/Monroy Pulse Ox Last 24 Hr 98.1 F-98.4 F 63-76 18-18 114-142/59-80 95-100 GENERAL: Awake, alert, and fully oriented, in no acute distress. LUNGS: Breath sounds equal, clear to auscultation bilaterally. No wheezes, and no crackles. No accessory muscle use. HEART: Regular rate and rhythm, S1, S2, S3 ABDOMEN: Soft, nontender, not distended, UPPER EXTREMITIES: 2+ pulses, warm, well-perfused. No cyanosis. No clubbing. No peripheral edema. LOWER EXTREMITIES: 2+ pulses, warm, well-perfused. No calf tenderness. No peripheral edema. NEUROLOGICAL: Cranial nerves II-XII intact. Normal speech. Laboratory Results - last 24 hr 03/11/19 03/12/19 03/13/19 07:20 21:35 06:41 WBC RBC Hgb Hct MCV MCH MCHC RDW Plt Count MPV Absolute Neuts (auto) Neutrophils % Lymphocytes % Monocytes % Eosinophils % Basophils % Sodium Potassium Chloride Carbon Dioxide Anion Gap BUN Creatinine Est GFR (CKD-EPI)AfAm Est GFR (CKD-EPI)NonAf POC Glucometer 121 96 Random Glucose Calcium Magnesium Total Bilirubin AST ALT Alkaline Phosphatase Total Protein Albumin Blood Type O POSITIVE 03/13/19 03/13/19 03/13/19 10:55 10:55 11:09 WBC 6.6 RBC 4.32 Hgb 12.7 Hct 38.3 MCV 88.7 MCH 29.3 MCHC 33.1 RDW 11.4 L Plt Count 274 MPV 8.3 Absolute Neuts (auto) 4.5 Neutrophils % 69.5 Lymphocytes % 20.7 Monocytes % 8.5 Eosinophils % 0.5 Basophils % 0.8 Sodium 137 Potassium 2.7 L* Chloride 100 Carbon Dioxide 29 Anion Gap 8 BUN 7.0 Creatinine 0.9 Est GFR (CKD-EPI)AfAm 126.02 Est GFR (CKD-EPI)NonAf 108.73 POC Glucometer 101 Random Glucose 134 H Calcium 8.5 Magnesium 1.8 Total Bilirubin 2.4 H AST 26 ALT 26 Alkaline Phosphatase 108 D Total Protein 7.6 Albumin 4.0 Blood Type Active Medications Generic Name Dose Route Start Last Admin Trade Name Freq PRN Reason Stop Dose Admin Acetaminophen 650 mg 03/12/19 18:56 03/12/19 19:30 Tylenol - PO 650 mg Q6H PRN Administration PAIN LEVEL 1-5 Amlodipine Besylate 10 mg 03/12/19 10:00 03/13/19 09:50 Norvasc - PO 10 mg DAILY CED Administration Atorvastatin Calcium 40 mg 03/11/19 22:00 03/12/19 21:33 Lipitor - PO 40 mg HS CED Administration Heparin Sodium (Porcine) 5,000 unit 03/12/19 02:00 03/13/19 09:49 Heparin - SQ 5,000 unit Q8H-IV CED Administration Hydrochlorothiazide 12.5 mg 03/12/19 10:00 03/13/19 09:50 Hctz - PO 12.5 mg DAILY CED Administration Piperacillin Sod/Tazobactam 50 mls @ 100 mls/hr 03/12/19 18:00 03/13/19 09:50 Sod 3.375 gm/ Dextrose IVPB 100 mls/hr Q8H-IV CED Administration Protocol Potassium Chloride 40 meq/ 1,020 mls @ 125 mls/hr 03/13/19 12:15 Sodium Chloride IVPB 03/13/19 20:25 ASDIR CED Insulin Aspart 1 vial 03/11/19 22:00 03/13/19 11:14 Novolog Vial Sliding Scale - SQ Not Given ACHS [facility] Protocol Lisinopril 40 mg 03/12/19 10:00 03/13/19 09:50 Prinivil PO 40 mg DAILY ECD Administration Ondansetron HCl 4 mg 03/11/19 19:53 Zofran Injection IVPUSH Q6H PRN NAUSEA AND/OR VOMITING Potassium Chloride 40 meq 03/13/19 12:15 K-Dur - PO 03/13/19 18:16 Q6H CED Silver Sulfadiazine 1 applic 03/12/19 10:00 03/13/19 09:50 Silvadene - TP 1 applic DAILY CED Administration ASSESSMENT/PLAN 39 year-old male with a PMH significant for HTN, and IDDM, admitted for possible acute cholecystitis. Abdominal pain --possibly secondary to acute alcalculous cholecystitis based upon 03/11 US; HIDA scan negative; no surgical intervention --still with episodic RUQ pain, diarrhea, rising bilirubin --CTAP with contrast pending --continue Zosyn (day #2) --ID following Diarrhea --send c. diff, occult stool, stool culture Hypokalemia --K 2.7 --replete with PO & IV --repeat bmp 6:00pm --ECG Hypertension --continue lisinopril, amlodipine; hold HCTZ due to hypoK IDDM --A1C 7.4 --at home takes Levemir 46U at night; during this stay, insulin requirements have been minimal, 2U over 48 hours; no long-acting insulin; Novolog sliding scale coverage only Blister right heel --topical wound care with silvadene daily, covere with Allevyn heel dressing FEN Fluids: NS+40K@75mL/hr Electrolytes: replete as indicated Nutrition: diabetic clears DVT prophylaxis: SCDs, subq heparin Dispo: continues to require inpatient care. Visit type - Emergency Visit Emergency Visit: Yes ED Registration Date: 03/11/19 Care time: The patient presented to the Emergency Department on the above date and was hospitalized for further evaluation of their emergent condition. - New Patient This patient is new to me today: No - Critical Care Critical Care patient: No
[2019-03-13] MEDS ORDERED: MAGNESIUM OXIDE 400 MG TABLET (FP) PO ONE (12:15)
[2019-03-13] MEDS ORDERED: SODIUM CHLORIDE 1,000 ML with POTASSIUM CHLORIDE 40 MEQ IVPB SCH (12:15)
[2019-03-13] MEDS: POTASSIUM CHLORIDE TABS 20 MEQ TABLET.ER (FP) PO SCH ×2 (12:34→17:26)
[2019-03-13] MEDS: ACETAMINOPHEN 325 MG TABLET (FP) PO PRN ×2 (15:00→22:30)
[2019-03-13] MEDS ORDERED: INSULIN (NOVOLOG) ASPART 100 UNITS/ML 10ML VIAL ONE ×2 (16:16→21:24)
[2019-03-13 18:30] LABS: CALCIUM 8.2 mg/dl (8.5-10); MAGNESIUM 1.9 mg/dL (1.8-2.4)
[2019-03-13 18:52] LABS: POTASSIUM 2.7 mmol/L (3.5-5.1)
[2019-03-13 19:17] LABS: BILIRUBIN,DIRECT 0.2 mg/dL (0.0-0.2)
[2019-03-13] MEDS ORDERED: POTASSIUM CHLORIDE TABS 20 MEQ TABLET.ER (FP) PO ONE (19:34)
[2019-03-13] MEDS: KCL 10 MEQ IVPB 10 MEQ/100 ML INFUS.BAG IVPB SCH ×3 (20:05→23:10)
[2019-03-13] MEDS: ATORVASTATIN CA 40 MG TABLET (FP) PO SCH (21:39)
[2019-03-14] MEDS ORDERED: ONDANSETRON 4 MG/2 ML VIAL IVPUSH PRN (01:34)
[2019-03-14] MEDS: PIPERACILLIN/TAZOB 3.375 GM 3.375 GM in DEXTROSE 5%-WATER - 50 ML IVPB SCH (01:44)
[2019-03-14] MEDS: HEPARIN NA (PORCINE) 5,000 UNITS/ML 1ML VIAL SQ SCH ×3 (01:45→17:12)
[2019-03-14 02:11] LABS: POTASSIUM 3.7 mmol/L (3.5-5.1)
[2019-03-14 02:12] LABS: CALCIUM 8.4 mg/dL (8.5-10.1); MAGNESIUM 2.1 mg/dL (1.8-2.4)
[2019-03-14] MEDS ORDERED: METOCLOPRAMIDE HCL INJECTION 10 MG/2 ML VIAL IVPB ONE (02:36)
--- NOTE | 2019-03-14 02:50 | ED.PROV ---
Physicial Exam I saw and examined the patient. - Vital Signs Last Vital Signs Temp Pulse Resp BP Pulse Ox 98.0 F 82 18 139/89 99 03/13/19 23:49 03/13/19 23:49 03/13/19 23:49 03/13/19 23:49 03/13/19 23:49 Critical Care Time/[facility] Note - Medical Decision Making Note: 03/14/19 02:40 Asked to see this patient with persistent vomiting after 2 doses of Zofran IV 4 mg . Patient was admitted 2 days ago with presumptive diagnosis of acalculous cholecystitis. Subsequent workup has ruled this out and patient had done well on clear liquid diet. Diet was advanced over the last 12 hours to soft solids. Patient last ate at dinner and nausea/vomiting developed through the evening. Vomitus has consisted of semi-digested food without blood/coffee grounds. The patient also has persistent watery diarrhea through the last several hours. Of note, potassium level of 2.7 earlier in the evening , now normal at 3.7 after potassium replacement. On examination, the patient is complaining of persistent nausea and discomfort in the epigastrium/right upper quadrant of his abdomen.-Vital signs: 139/89, heart rate 82/minute, patient is afebrile with temperature 98F orally. Abdominal exam reveals normal bowel sounds, soft nondistended abdomen with minimal epigastric/RUQ tenderness ( no rebound/ guarding). Assessment: Recurrent vomiting/diarrhea of unclear etiology after advancement of diet. Findings discussed with ASA Dillard from [facility] service. Since Zofran is currently ineffective, Reglan 10 mgIVPB will be given and patient kept NPO until further assessment in the morning. Chemistry profile and CBC will be drawn with morning labs
[2019-03-14] MEDS: INSULIN SLIDING SCALE (NOVOLOG) 1 VIAL SQ SCH ×4 (06:41→21:51)
[2019-03-14 08:08] LABS: HEMATOCRIT 34.2 % (35.4-49); HEMOGLOBIN 11.5 GM/dl (11.7-16.9); MCH 29.8 pg (25.7-33.7); MCHC 33.6 g/dl (32.0-35.9); MEAN CELL VOLUME 88.6 fl (80-96); MEAN PLT VOLUME 8.6 fl (7.5-11.1); PLATELET COUNT 228 K/MM3 (134-434); RBC 3.86 M/mm3 (4.00-5.60); RDW 11.8 % (11.9-15.9); WHITE BLOOD COUNT 6.9 K/mm3 (4.0-10.8)
--- NOTE | 2019-03-14 08:21 | PN ---
Progress Note, Physician History of Present Illness: 39M with PMH IDDM presented with 2 days nausea and vomiting. Patient states he has had several episodes of vomiting for 2 days prior to admission starting at 4AM Saturday. Vomit is non-bloody and appears like prior meal. Last meal was spaghetti cooked at home by his mother, denies anyone else at home feeling similar symptoms or other sick contacts. He also had 2 loose stools, as well as abdominal pain in the epigastric region. Denies headaches, fever/chills. chest pain, SOB, urinary sx, no recent travel - Current Medication List Current Medications: Active Medications Acetaminophen (Tylenol -) 650 mg PO Q6H PRN PRN Reason: PAIN LEVEL 1-5 Last Admin: 03/13/19 22:30 Dose: 650 mg Amlodipine Besylate (Norvasc -) 10 mg PO DAILY [facility] Last Admin: 03/13/19 09:50 Dose: 10 mg Atorvastatin Calcium (Lipitor -) 40 mg PO HS CED Last Admin: 03/13/19 21:39 Dose: 40 mg Heparin Sodium (Porcine) (Heparin -) 5,000 unit SQ Q8H-IV CED Last Admin: 03/14/19 01:45 Dose: 5,000 unit Hydrochlorothiazide (Hctz -) 12.5 mg PO DAILY [facility] Last Admin: 03/13/19 09:50 Dose: 12.5 mg Piperacillin Sod/Tazobactam (Sod 3.375 gm/ Dextrose) 50 mls @ 100 mls/hr IVPB Q8H-IV [facility]; Protocol Last Admin: 03/14/19 01:44 Dose: 100 mls/hr Insulin Aspart (Novolog Vial Sliding Scale -) 1 vial SQ ACHS [facility]; Protocol Last Admin: 03/14/19 06:41 Dose: Not Given Lisinopril (Prinivil) 40 mg PO DAILY [facility] Last Admin: 03/13/19 09:50 Dose: 40 mg Ondansetron HCl (Zofran Injection) 4 mg IVPUSH Q4H PRN PRN Reason: NAUSEA AND/OR VOMITING Last Admin: 03/14/19 01:44 Dose: 4 mg Silver Sulfadiazine (Silvadene -) 1 applic TP DAILY [facility] Last Admin: 03/13/19 09:50 Dose: 1 applic - Objective Vital Signs: Vital Signs Temperature 98.9 F 03/14/19 06:00 Pulse Rate 84 03/14/19 06:00 Respiratory Rate 18 03/14/19 06:00 Blood Pressure 133/59 L 03/14/19 06:00 O2 Sat by Pulse Oximetry (%) 98 03/14/19 06:00 Constitutional: Yes: Well Nourished, No Distress, Mild Distress Eyes: Yes: WNL, Conjunctiva Clear, EOM Intact HENT: Yes: WNL, Atraumatic, Normocephalic Neck: Yes: WNL, Supple, Trachea Midline Cardiovascular: Yes: WNL, Regular Rate and Rhythm Respiratory: Yes: WNL, Regular, CTA Bilaterally Gastrointestinal: Yes: Normal Bowel Sounds, Soft, Tenderness, Epigastrium Genitourinary: Yes: WNL Breast(s): Yes: WNL Musculoskeletal: Yes: WNL Extremities: Yes: WNL Edema: No Peripheral Pulses WNL: Yes Integumentary: Yes: WNL Neurological: Yes: WNL, Alert, Oriented ...Motor Strength: WNL Psychiatric: Yes: WNL, Alert, Oriented Labs: CBC, BMP 03/14/19 07:15 INR, PTT INR 1.34 (0.82-1.09) H 03/11/19 19:10 - ....Imaging Cat Scan: Report Reviewed (Abd CT: normal) Other: Report Reviewed (HIDA: no acute cholecyctitis) Problem List - Problems (1) Abdominal pain Assessment/Plan: abdominal pain persists after meal yesterday, resoling with antiemetics CT unremarkable-small amt of pericholecystic fluid accumulation seen c/w reglan standing and zofran PRN c/w IVF @ 125cc/hr until tolerating diet f/u stool studies IV/PO tylenol prn abx stopped as per ID, will monitor off Code(s): R10.9 - UNSPECIFIED ABDOMINAL PAIN (2) Diabetes Assessment/Plan: novolog sliding scale AC/qHS diabetic diet Code(s): E11.9 - TYPE 2 DIABETES MELLITUS WITHOUT COMPLICATIONS (3) Prophylactic measure Assessment/Plan: FEN IVF NS at 125cc/hr monitor electrolytes diabetic diet DVT heparin sq Dispo maintain inpatient full code discharge planning Code(s): Z29.9 - ENCOUNTER FOR PROPHYLACTIC MEASURES, UNSPECIFIED (4) Nausea and vomiting Assessment/Plan: change reglan to standing q6H zofran prn f/u stool studies Code(s): R11.2 - NAUSEA WITH VOMITING, UNSPECIFIED Qualifiers: Vomiting type: unspecified Vomiting Intractability: non-intractable Qualified Code(s): R11.2 - Nausea with vomiting, unspecified Visit type - Emergency Visit Emergency Visit: Yes ED Registration Date: 03/11/19 Care time: The patient presented to the Emergency Department on the above date and was hospitalized for further evaluation of their emergent condition. - New Patient This patient is new to me today: Yes Date on this admission: 03/14/19 - Critical Care Critical Care patient: No - Discharge Referral Referred to [facility] Med P.C.: No
[2019-03-14 08:37] LABS: ALBUMIN 3.6 g/dl (3.4-5.0); BILIRUBIN,TOTAL 1.9 mg/dl (0.2-1); CALCIUM 8.4 mg/dl (8.5-10); CREATININE 0.8 mg/dl (0.55-1.3); POTASSIUM 3.8 mmol/L (3.5-5.1); TOT PROT 6.8 g/dl (6.4-8.2)
[2019-03-14] MEDS ORDERED: INSULIN (NOVOLOG) ASPART 100 UNITS/ML 10ML VIAL SQ ONE (08:58)
--- NOTE | 2019-03-14 08:58 | PN ---
Progress Note, Physician History of Present Illness: patient not feeling well says pain in the belly and ruq nausea and throwing up - Current Medication List Current Medications: Active Medications Acetaminophen (Tylenol -) 650 mg PO Q6H PRN PRN Reason: PAIN LEVEL 1-5 Last Admin: 03/13/19 22:30 Dose: 650 mg Amlodipine Besylate (Norvasc -) 10 mg PO DAILY [facility] Last Admin: 03/13/19 09:50 Dose: 10 mg Atorvastatin Calcium (Lipitor -) 40 mg PO HS [facility] Last Admin: 03/13/19 21:39 Dose: 40 mg Heparin Sodium (Porcine) (Heparin -) 5,000 unit SQ Q8H-IV [facility]ED Last Admin: 03/14/19 01:45 Dose: 5,000 unit Hydrochlorothiazide (Hctz -) 12.5 mg PO DAILY [facility] Last Admin: 03/13/19 09:50 Dose: 12.5 mg Piperacillin Sod/Tazobactam (Sod 3.375 gm/ Dextrose) 50 mls @ 100 mls/hr IVPB Q8H-IV [facility]; Protocol Last Admin: 03/14/19 01:44 Dose: 100 mls/hr Insulin Aspart (Novolog Vial Sliding Scale -) 1 vial SQ ACHS [facility]; Protocol Last Admin: 03/14/19 06:41 Dose: Not Given Lisinopril (Prinivil) 40 mg PO DAILY [facility] Last Admin: 03/13/19 09:50 Dose: 40 mg Ondansetron HCl (Zofran Injection) 4 mg IVPUSH Q4H PRN PRN Reason: NAUSEA AND/OR VOMITING Last Admin: 03/14/19 01:44 Dose: 4 mg Silver Sulfadiazine (Silvadene -) 1 applic TP DAILY [facility] Last Admin: 03/13/19 09:50 Dose: 1 applic - Objective Vital Signs: Vital Signs Temperature 98.9 F 03/14/19 06:00 Pulse Rate 84 03/14/19 06:00 Respiratory Rate 18 03/14/19 06:00 Blood Pressure 133/59 L 03/14/19 06:00 O2 Sat by Pulse Oximetry (%) 98 03/14/19 06:00 Constitutional: Yes: Calm, Moderate Distress Cardiovascular: Yes: Regular Rate and Rhythm Respiratory: Yes: Regular, CTA Bilaterally Gastrointestinal: Yes: Soft, Tenderness (rt sided of the abd) Musculoskeletal: Yes: WNL Extremities: Yes: WNL Neurological: Yes: Alert, Oriented Psychiatric: Yes: Alert, Oriented Labs: CBC, BMP 03/14/19 07:15 03/14/19 07:15 INR, PTT INR 1.34 (0.82-1.09) H 03/11/19 19:10 - ....Imaging Cat Scan: Report Reviewed, Image Reviewed Assessment/Plan 39 year-old male with a PMH significant for HTN, and IDDM, admitted for possible acute cholecystitis. Possible acute alcalculous cholecystitis Hypertension IDD Blister right heel rt abd pain plan ct scan seen results noted can stop abx and watch
[2019-03-14] MEDS ORDERED: INSULIN (NOVOLOG) ASPART 100 UNITS/ML 10ML VIAL ONE (09:33)
[2019-03-14] MEDS: amLODIPine BESYLATE 10 MG TABLET (FP) PO SCH (10:19)
[2019-03-14] MEDS: METOCLOPRAMIDE HCL INJECTION 10 MG/2 ML VIAL IVPUSH SCH ×3 (10:19→21:48)
[2019-03-14] MEDS: LISINOPRIL 20 MG TABLET (FP) PO SCH (10:19)
[2019-03-14] MEDS: HYDROCHLOROTHIAZIDE 12.5 MG CAPSULE (FP) PO SCH (10:20)
[2019-03-14] MEDS: SILVER SULFADIAZINE 1% TOP CREAM 50 GM JAR TP SCH (10:21)
[2019-03-14] MEDS: SODIUM CHLORIDE 1,000 ML IV SCH ×2 (11:56→21:48)
[2019-03-14 12:12] LABS: INR 1.35 (0.82-1.09)
[2019-03-14] MEDS: ATORVASTATIN CA 40 MG TABLET (FP) PO SCH (21:48)
[2019-03-15] MEDS: HEPARIN NA (PORCINE) 5,000 UNITS/ML 1ML VIAL SQ SCH (01:47)
[2019-03-15] MEDS: METOCLOPRAMIDE HCL INJECTION 10 MG/2 ML VIAL IVPUSH SCH (05:13)
[2019-03-15] MEDS: INSULIN SLIDING SCALE (NOVOLOG) 1 VIAL SQ SCH (06:16)
[2019-03-15 06:32] VITALS: BP 141/75; PULSE 86; TEMP 98.6
[2019-03-15 09:27] LABS: BASO % 0.8 % (0-2.0); EOS % 0.6 % (0-4.5); HEMATOCRIT 32.7 % (35.4-49); HEMOGLOBIN 10.5 GM/dl (11.7-16.9); LYMPH % 25.9 % (8-40); MCH 28.8 pg (25.7-33.7); MCHC 32.1 g/dl (32.0-35.9); MEAN CELL VOLUME 89.7 fl (80-96); MONO % 10.8 % (3.8-10.2); NEUT % 61.9 % (42.8-82.8); PLATELET COUNT 199 K/MM3 (134-434); RBC 3.65 M/mm3 (4.00-5.60); RDW 11.6 % (11.9-15.9); WHITE BLOOD COUNT 5.4 K/mm3 (4.0-10.8)
[2019-03-15 09:47] LABS: ALBUMIN 3.3 g/dl (3.4-5.0); BILIRUBIN,TOTAL 2.2 mg/dl (0.2-1); CALCIUM 8.2 mg/dl (8.5-10); CREATININE 0.9 mg/dl (0.55-1.3); MAGNESIUM 1.8 mg/dL (1.8-2.4); POTASSIUM 2.9 mmol/L (3.5-5.1); TOT PROT 6.3 g/dl (6.4-8.2)
[2019-03-15] MEDS ORDERED: POTASSIUM CHLORIDE TABS 20 MEQ TABLET.ER (FP) PO ONE (09:51)
--- NOTE | 2019-03-15 09:51 | DS ---
Physical Exam: SUBJECTIVE: Patient seen and examined OBJECTIVE: Vital Signs Period Temp Pulse Resp BP Sys/Monroy Pulse Ox Last 24 Hr 97.8 F-99.6 F 78-86 17-20 123-153/58-85 93-98 PHYSICAL EXAM GENERAL: The patient is awake, alert, and fully oriented, in no acute distress. HEAD: Normal with no signs of trauma. EYES: PERRL, extraocular movements intact, sclera anicteric, conjunctiva clear. ENT: Ears normal, nares patent, oropharynx clear without exudates, moist mucous membranes. NECK: Trachea midline, full range of motion, supple. LUNGS: Breath sounds equal, clear to auscultation bilaterally, no wheezes, no crackles, no accessory muscle use. HEART: Regular rate and rhythm, S1, S2 without murmur, rub or gallop. ABDOMEN: Soft, nontender, nondistended, normoactive bowel sounds, no guarding, no rebound, no hepatosplenomegaly, no masses. EXTREMITIES: 2+ pulses, warm, well-perfused, no edema. NEUROLOGICAL: Cranial nerves II through XII grossly intact. Normal speech, gait not observed. PSYCH: Normal mood, normal affect. SKIN: Warm, dry, normal turgor, no rashes or lesions noted. LABS Laboratory Results - last 24 hr 03/14/19 03/14/19 03/14/19 11:13 11:45 16:24 WBC RBC Hgb Hct MCV MCH MCHC RDW Plt Count MPV Absolute Neuts (auto) Neutrophils % Lymphocytes % Monocytes % Eosinophils % Basophils % PT with INR 15.0 H INR 1.35 H POC Glucometer 194 139 03/14/19 03/15/19 03/15/19 21:49 06:00 06:15 WBC 5.4 RBC 3.65 L Hgb 10.5 L Hct 32.7 L MCV 89.7 MCH 28.8 MCHC 32.1 RDW 11.6 L Plt Count 199 MPV 9.0 Absolute Neuts (auto) 3.4 Neutrophils % 61.9 Lymphocytes % 25.9 D Monocytes % 10.8 H Eosinophils % 0.6 Basophils % 0.8 PT with INR INR POC Glucometer 143 141 HOSPITAL COURSE: Date of Admission:03/11/19 Date of Discharge: 03/15/19 Minutes to complete discharge: 30 Discharge Summary Reason For Visit: CHOLECYSTITIS Current Active Problems Abdominal pain (Acute) Diabetes (Acute) Prophylactic measure (Acute) Hospital Course: 39M with PMH IDDM presented with 2 days nausea and vomiting. Patient states he has had several episodes of vomiting for 2 days prior to admission starting at 4AM Saturday. Vomit is non-bloody and appears like prior meal. Last meal was spaghetti cooked at home by his mother, denies anyone else at home feeling similar symptoms or other sick contacts. He also had 2 loose stools, as well as abdominal pain in the epigastric region. Constitutional: Yes: Well Nourished, No Distress, Mild Distress Eyes: Yes: WNL, Conjunctiva Clear, EOM Intact HENT: Yes: WNL, Atraumatic, Normocephalic Neck: Yes: WNL, Supple, Trachea Midline Cardiovascular: Yes: WNL, Regular Rate and Rhythm Respiratory: Yes: WNL, Regular, CTA Bilaterally Gastrointestinal: Yes: Normal Bowel Sounds, Soft, Tenderness, Epigastrium Genitourinary: Yes: WNL Breast(s): Yes: WNL Musculoskeletal: Yes: WNL Extremities: Yes: WNL Edema: No Peripheral Pulses WNL: Yes Integumentary: Yes: WNL Neurological: Yes: WNL, Alert, Oriented ...Motor Strength: WNL Psychiatric: Yes: WNL, Alert, Oriented ....Imaging Cat Scan: Report Reviewed (Abd CT: normal) Other: Report Reviewed (HIDA: no acute cholecyctitis) Problem List - Problems (1) Abdominal pain Assessment/Plan: Abdominal pain resolved CT unremarkable-small amt of pericholecystic fluid accumulation seen Improved with Reglan-prescribed for an additional 5 days All stool studies negative Abx stopped after 3 days and no reutn of fevers or leukocytosis Code(s): R10.9 - UNSPECIFIED ABDOMINAL PAIN (2) Diabetes Assessment/Plan: novolog sliding scale AC/qHS while in patinet BG well controlled Resume regime on discharge continue diabetic diet advising to keep meals light after discharge Code(s): E11.9 - TYPE 2 DIABETES MELLITUS WITHOUT COMPLICATIONS (3) Prophylactic measure Assessment/Plan: Treated with IVF NS at 125cc/hr stopped morning of discharge. Encouraged patient to stay well hydrated DVT heparin sq while in aptient. No need for anticaogulation after discharge Code(s): Z29.9 - ENCOUNTER FOR PROPHYLACTIC MEASURES, UNSPECIFIED (4) Nausea and vomiting Assessment/Plan: Continue regaln for 5 days after discharge zofran prn f/u stool studies Code(s): R11.2 - NAUSEA WITH VOMITING, UNSPECIFIED Qualifiers: Vomiting type: unspecified Vomiting Intractability: non-intractable Qualified Code(s): R11.2 - Nausea with vomiting, unspecified Condition: Improved - Instructions Diet, Activity, Other Instructions: You were admitted for gastroenteritis (non-bacterial). All cultures (blood, urine, stool) were all negative. CT of abdomen was unremarkable. You can resume your diabetic diet, keep it light for the next few days. No heavy, fatty, fried foods. Take the reglan until the prescription runs out. If you have any fevers or the vomiting/nausea or abddominal pain returns call your primary provider or go to the ED. You potassium has been low related to the vomiting and diarrhea. You have been prescribed a potassium supplement. Take it daily for 1 week Make an appointment with you primary provider after discharge to follow your potassium levels. Disposition: HOME - Home Medications Comprehensive Discharge Medication List: Ambulatory Orders Amlodipine Besylate [Norvasc -] 10 mg PO DAILY 03/11/19 Atorvastatin Ca [Lipitor] 40 mg PO HS 03/11/19 Hydrochlorothiazide [Hctz -] 12.5 mg PO DAILY 03/11/19 Lisinopril [Prinivil -] 40 mg PO DAILY 03/11/19 Acetaminophen [Tylenol .Regular Strength -] 650 mg PO Q6H PRN tablet 03/15/19 Insulin Sliding Scale [Novolog Vial Sliding Scale -] 1 vial SQ ACHS units 03/15 Metoclopramide HCl [Reglan -] 10 mg PO TIDAC #15 tablet 03/15/19 Silver Sulfadiazine 1% Top Cr [Silvadene -] 1 applic TP DAILY jar 03/15/19 Problem List - Problems (1) Abdominal pain Code(s): R10.9 - UNSPECIFIED ABDOMINAL PAIN (2) Diabetes Code(s): E11.9 - TYPE 2 DIABETES MELLITUS WITHOUT COMPLICATIONS (3) Prophylactic measure Code(s): Z29.9 - ENCOUNTER FOR PROPHYLACTIC MEASURES, UNSPECIFIED (4) Nausea and vomiting Code(s): R11.2 - NAUSEA WITH VOMITING, UNSPECIFIED Qualifiers: Vomiting type: unspecified Vomiting Intractability: non-intractable Qualified Code(s): R11.2 - Nausea with vomiting, unspecified (5) Hypokalemia Code(s): E87.6 - HYPOKALEMIA This patient is new to me today: No Emergency Visit: Yes ED Registration Date: 03/11/19 Care time: The patient presented to the Emergency Department on the above date and was hospitalized for further evaluation of their emergent condition. Critical Care patient: No - Discharge Referral Referred to [facility] Med P.C.: No
[2019-03-15] MEDS: LISINOPRIL 20 MG TABLET (FP) PO SCH (09:59)
[2019-03-15] MEDS: SILVER SULFADIAZINE 1% TOP CREAM 50 GM JAR TP SCH (09:59)
[2019-03-15] MEDS: HYDROCHLOROTHIAZIDE 12.5 MG CAPSULE (FP) PO SCH (09:59)
[2019-03-15] MEDS: amLODIPine BESYLATE 10 MG TABLET (FP) PO SCH (09:59)
[2019-03-15] MEDS ORDERED: METOCLOPRAMIDE HCL 10 MG TABLET (FP) PO SCH (11:00)
[2019-03-15] MEDS ORDERED: POTASSIUM CHLORIDE TABS 20 MEQ TABLET.ER (FP) PO SCH (14:00)
[2019-03-15 22:50] LABS: URINE APPEARANCE CLEAR; URINE BILIRUBIN NEGATIVE (NEGATIVE); URINE COLOR YELLOW; URINE GLUCOSE (UA) NEGATIVE (NEGATIVE); URINE KETONE NEGATIVE (NEGATIVE)
[2019-03-15 22:51] LABS: PH,URINE 5.5 (4.5-8); URINE LEUK ESTERASE NEGATIVE (NEGATIVE); URINE NITRITE NEGATIVE (NEGATIVE); URINE PROTEIN TRACE (NEGATIVE); URINE UROBILINOGEN 0.2 (0.2-1.0)
--- NOTE | 2019-03-17 09:38 | EKG ---
Test Reason : Blood Pressure : / mmHG Vent. Rate : 069 BPM Atrial Rate : 069 BPM P-R Int : 120 ms QRS Dur : 072 ms QT Int : 358 ms P-R-T Axes : 061 076 -39 degrees QTc Int : 383 ms NORMAL SINUS RHYTHM T WAVE ABNORMALITY, CONSIDER LATERAL ISCHEMIA ABNORMAL ECG WHEN COMPARED WITH ECG OF 11-MAR-2019 18:46, NO SIGNIFICANT CHANGE WAS FOUND Confirmed by Rick Davey MD ([id number]) on 03/17/2019 9:38:42 AM Referred By: ASA GUTIERRES Confirmed By:Rick Davey MD
== END 2019-03-15 10:45 | disposition home or self-care (01) | DRG 392 ==
LOC: FER 15:41 → FM/S 21:50
PROVIDERS: ADMIT Internal Medicine; ATTEND Nurse Practitioner Acute Care
DX: K52.9 Noninfective gastroenteritis and colitis, unspecified (principal); E87.6 Hypokalemia; E11.9 Type 2 diabetes mellitus without complications; I10 Essential (primary) hypertension; Z79.4 Long term (current) use of insulin; S90.821A Blister (nonthermal), right foot, initial encounter; X58.XXXA Exposure to other specified factors, initial encounter; Y93.89 Activity, other specified; Y92.89 Other specified places as the place of occurrence of the external cause; Y99.8 Other external cause status
CPT/HCPCS: 36415; 71046-TC-FY; 74177-TC; 76705-TC; 78226-TC; 80048; 80053; 80076; 81003; 82009; 82248; 82272; 82962; 83036; 83690; 83735; 85025; 85027; 85610; 85730; 86850; 86900; 86901; 87040; 87045; 87046; 87077; 87324; 87449; 93005; 93010; 99285-25; A9537; J0131; J1644; J7030

== ENCOUNTER 2019-04-30 12:50 | Emergency (ER) | payer BC ==
[2019-04-30 12:55] VITALS: TEMP 98.8; BMI 28.7
--- NOTE | 2019-04-30 13:33 | PDOC ---
History of Present Illness - General Chief Complaint: Pain, Acute Stated Complaint: ABD PAIN, VOMITING Time Seen by Provider: 04/30/19 13:14 - History of Present Illness Initial Comments: 04/30/19 13:24 Chief complaint: Abdominal pain HPI: Crampy mid abdominal pain for 2 days, getting more severe. Nausea and vomiting on the first day, no diarrhea. Review of systems: Denies fever/chills, headache, URI symptoms, sore throat, cough, chest pain, shortness of breath, hematemesis, melena, bloody stool, visual or focal neurologic symptoms, unsteadiness of gait. Has been unable to eat, but taking small sips of fluids. Urinating normally. Past medical history: Insulin-dependent diabetes for 10 years, DKA at time of diagnosis, but no significant complications or recurrent DKA since then. Gallstones. No abdominal surgery. Checks his sugar at home and it has been in the 100s. 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 Denies tobacco alcohol or nonprescription drugs. Family history: No diabetes in the immediate family. No early coronary artery disease, other metabolic diseases, or cancer Physical exam: Alert and oriented well-developed well-nourished mild to moderate distress due to abdominal pain, but cooperative Afebrile, vital signs normal No pallor or icterus. PERRLA, fundi benign, ENT clear Neck supple without bruit mass or nodes Chest clear with full breath sounds bilaterally CV regular without murmur rub or gallop pulses full and symmetric no JVD or edema no bruits Abdomen nondistended. Bowel sounds present and normal in character. Soft with no appreciable tenderness to palpation despite vigorous deep probing into the right and left lower quadrants. No right upper quadrant tenderness and no Aguayo sign is present. Extremities no CCE Mucous members are dry, turgor is adequate, no obvious rash Neurological intact Impression: Abdominal pain, nausea, vomiting, without diarrhea or change in bowel habits. Symptoms present for 2 days. No physical findings of appendicitis or other peritonitis. Possible gastroenteritis in a diabetic, with increased dysmotility and/or gastroparesis. Rule out acidosis/DKA. Plan: CBC, chemistries, symptomatic treatment including fluids, antiemetics, and further evaluation and treatment depending on results. Past History - Past Medical History Allergies/Adverse Reactions: Allergies Allergy/AdvReac Type Severity Reaction Status Date / Time No Known Allergies Allergy Verified 04/30/19 12:52 Home Medications: Ambulatory Orders Amlodipine Besylate [Norvasc -] 10 mg PO DAILY 03/11/19 Atorvastatin Ca [Lipitor] 40 mg PO HS 03/11/19 Hydrochlorothiazide [Hctz -] 12.5 mg PO DAILY 03/11/19 Lisinopril [Prinivil -] 40 mg PO DAILY 03/11/19 Insulin Sliding Scale [Novolog Vial Sliding Scale -] 1 vial SQ ACHS units 03/15 Insulin Detemir [Levemir Flextouch] 46 unit SQ DAILY 04/30/19 Ondansetron HCl [Zofran] 4 mg PO TID PRN #9 tablet 04/30/19 COPD: No Diabetes: Yes HTN: Yes Thyroid Disease: No - Psycho Social/Smoking Cessation Hx Smoking History: Never smoked Have you smoked in the past 12 months: No Information on smoking cessation initiated: No Hx Alcohol Use: No Drug/Substance Use Hx: No Substance Use Type: None *Physical Exam - Vital Signs Last Vital Signs Temp Pulse Resp BP Pulse Ox 98.8 F 102 H 18 121/84 100 04/30/19 12:50 04/30/19 12:50 04/30/19 12:50 04/30/19 12:50 04/30/19 12:50 ED Treatment Course - LABORATORY CBC & Chemistry Diagram: 04/30/19 13:45 04/30/19 13:45 Medical Decision Making - Medical Decision Making 04/30/19 15:16 Normal CBC including white blood count Normal chemistries except for blood sugar of 312, mild dehydration. No anion gap. Urinalysis clear Patient symptoms much improved with intravenous hydration, Zofran, and Pepcid. Pain has subsided. Nausea has subsided and there is been no further vomiting. Abdomen remains soft and nontender. Most likely diagnosis is viral gastroenteritis, superimposed on mild dysmotility. Despite the patient having no signs of sepsis, lactic acid initially was 2.7. After hydration, it will be repeated. Suspect that it will falling to the normal range. Symptoms have resolved and the patient appears clinically and hemodynamically well. Signed out to Dr. lambert 7 PM pending second lactic acid results and further disposition.. Discharge - Discharge Information Problems reviewed: Yes Clinical Impression/Diagnosis: Abdominal pain Qualifiers: Abdominal location: unspecified location Qualified Code(s): R10.9 - Unspecified abdominal pain Nausea & vomiting Qualifiers: Vomiting type: unspecified Vomiting Intractability: unspecified Qualified Code( s): R11.2 - Nausea with vomiting, unspecified Condition: Good Disposition: HOME - Admission No - Additional Discharge Information Prescriptions: Ondansetron HCl [Zofran] 4 mg PO TID PRN #9 tablet PRN Reason: nausea and vomiting - Follow up/Referral Referrals: Devin Yeager MD [Primary Care Provider] - Saman Delgado DO [Staff Physician] - - Patient Discharge Instructions Patient Printed Discharge Instructions: DI for Viral Gastroenteritis -- Adult, DI for Abdominal Pain-Adult, Nausea and Vomiting-Adult Additional Instructions: 1) Please follow-up with your primary care doctor in the next 1-2 days. Please call tomorrow for for any urgent issues. 2) You were given a copy of the tests performed today. Please bring the results with you and review them with your primary care doctor. Your laboratory / imaging results were normal, and improved 3) If you have any worsening of symptoms or any other concerns please return to the ED immediately. Return if worsening symptoms including fevers, headache, vomiting, visual or hearing disturbances, abdominal pain, chest pain, shortness of breath, syncope, dehydration, inability to take things by mouth/vomiting, altered mental status, or worsening concerning symptoms. 4) Please continue taking your home medications as directed. your medications on discharge include zofran three times a day as needed . side effects may include upset stomach, abdominal pain, vomiting, or diarrhea. do not drink alcohol with your medications. - you can take maalox every 6 hours for upset stomach and burning - pepcid daily until you feel better - follow bland diet and advance as tolerated Stay well hydrated and rest adequately. Make an appointment. If you cannot follow-up with your primary care doctor please return to the ED - Post Discharge Activity
[2019-04-30] MEDS ORDERED: SODIUM CHLORIDE 1,000 ML IV STA ×3 (13:34→17:43)
[2019-04-30] MEDS ORDERED: ONDANSETRON 4 MG/2 ML VIAL IVPB ONE (13:34)
[2019-04-30] MEDS ORDERED: FAMOTIDINE 20 MG/50 ML IVPB 20 MG/50 ML MG IVPB ONE ×2 (13:35→13:46)
[2019-04-30] MEDS ORDERED: ONDANSETRON 4 MG/2 ML VIAL ONE (13:46)
[2019-04-30 14:08] LABS: BASO % 3.1 % (0-2.0); EOS % 0.1 % (0-4.5); HEMATOCRIT 39.6 % (35.4-49); HEMOGLOBIN 13.4 GM/dl (11.7-16.9); LYMPH % 17.8 % (8-40); MCH 28.7 pg (25.7-33.7); MCHC 33.7 g/dl (32.0-35.9); MEAN CELL VOLUME 85.1 fl (80-96); MEAN PLT VOLUME 8.5 fl (7.5-11.1); MONO % 8.6 % (3.8-10.2); NEUT % 70.4 % (42.8-82.8); PLATELET COUNT 328 K/MM3 (134-434); RBC 4.66 M/mm3 (4.00-5.60); RDW 11.7 % (11.9-15.9)
[2019-04-30 14:14] LABS: ALBUMIN 4.4 g/dl (3.4-5.0); BILIRUBIN,TOTAL 1.9 mg/dl (0.2-1); CALCIUM 9.4 mg/dl (8.5-10); CREATININE 1.1 mg/dl (0.55-1.3); POTASSIUM 3.6 mmol/L (3.5-5.1); TOT PROT 8.6 g/dl (6.4-8.2)
[2019-04-30] MEDS ORDERED: ACETAMINOPHEN INJECTION 100 ML IVPB ONE (15:33)
[2019-04-30] MEDS ORDERED: ACETAMINOPHEN 1000 MG/100 ML VIAL (NON FORMULARY) IVPB ONE (15:36)
[2019-04-30] MEDS ORDERED: METOCLOPRAMIDE HCL INJECTION 10 MG/2 ML VIAL IVPUSH ONE (16:15)
[2019-04-30] MEDS ORDERED: METOCLOPRAMIDE HCL INJECTION 10 MG/2 ML VIAL ONE (16:17)
[2019-04-30] MEDS ORDERED: morphine CARPU-JECT 2 MG/1 ML DISP.SYRIN IVPUSH ONE (16:40)
[2019-04-30] MEDS ORDERED: morphine SULFATE 4 MG/ML VIAL ONE (16:50)
--- NOTE | 2019-04-30 20:40 | PDOC ---
*Physical Exam - Vital Signs Last Vital Signs Temp Pulse Resp BP Pulse Ox 98.8 F 102 H 18 121/84 100 04/30/19 12:50 04/30/19 12:50 04/30/19 12:50 04/30/19 12:50 04/30/19 12:50 ED Treatment Course - LABORATORY CBC & Chemistry Diagram: 04/30/19 13:45 04/30/19 13:45 - ADDITIONAL ORDERS Additional order review: Laboratory Results 04/30/19 04/30/19 04/30/19 18:41 18:35 13:45 Sodium Potassium Chloride Carbon Dioxide Anion Gap BUN Creatinine Est GFR (CKD-EPI)AfAm Est GFR (CKD-EPI)NonAf POC Glucometer 205 Random Glucose Lactic Acid 0.9 2.7 H* Calcium Total Bilirubin AST ALT Alkaline Phosphatase Total Protein Albumin Lipase Urine Color Urine Appearance Urine pH Urine Protein Urine Glucose (UA) Urine Ketones Urine Blood Urine Nitrite Urine Bilirubin Urine Urobilinogen Ur Leukocyte Esterase Urine RBC Urine WBC 04/30/19 04/30/19 04/30/19 13:45 13:45 13:38 Sodium 130 L Potassium 3.6 Chloride 92 L Carbon Dioxide 30 Anion Gap 8 BUN 17.0 Creatinine 1.1 Est GFR (CKD-EPI)AfAm 98.87 Est GFR (CKD-EPI)NonAf 85.31 POC Glucometer Random Glucose 312 H Lactic Acid Calcium 9.4 Total Bilirubin 1.9 H AST 19 ALT 18 Alkaline Phosphatase 106 Total Protein 8.6 H Albumin 4.4 Lipase 188 Urine Color Yellow Urine Appearance Clear Urine pH 6.5 Urine Protein 1+ H Urine Glucose (UA) Negative Urine Ketones Negative Urine Blood Negative Urine Nitrite Negative Urine Bilirubin Negative Urine Urobilinogen 1.0 Ur Leukocyte Esterase Negative Urine RBC 0-2 Urine WBC 0-2 04/30/19 13:34 Sodium Potassium Chloride Carbon Dioxide Anion Gap BUN Creatinine Est GFR (CKD-EPI)AfAm Est GFR (CKD-EPI)NonAf POC Glucometer 307 Random Glucose Lactic Acid Calcium Total Bilirubin AST ALT Alkaline Phosphatase Total Protein Albumin Lipase Urine Color Urine Appearance Urine pH Urine Protein Urine Glucose (UA) Urine Ketones Urine Blood Urine Nitrite Urine Bilirubin Urine Urobilinogen Ur Leukocyte Esterase Urine RBC Urine WBC 04/30/19 04/30/19 04/30/19 18:41 13:45 13:34 RBC 4.66 MCV 85.1 MCHC 33.7 RDW 11.7 L MPV 8.5 Neutrophils % 70.4 Lymphocytes % 17.8 D Monocytes % 8.6 Eosinophils % 0.1 D Basophils % 3.1 H D POC Glucometer 205 307 - Medications Given in the ED: ED Medications Discontinued Medications Generic Name Dose Route Start Last Admin Trade Name José Luis PRN Reason Stop Dose Admin Acetaminophen 1,000 mg 04/30/19 15:36 04/30/19 15:40 Ofirmev Injection - IVPB 04/30/19 15:37 1,000 mg ONCE ONE Administration Famotidine/Sodium Chloride 20 mg in 50 mls @ 100 mls/hr 04/30/19 13:35 13:55 Pepcid 20 Mg Premixed Ivpb - IVPB 04/30/19 14:04 100 mls/hr ONCE ONE Administration Sodium Chloride 1,000 mls @ 1,000 mls/hr 04/30/19 13:34 04/30/19 13:45 Normal Saline - IV 04/30/19 14:33 1,000 mls/hr ASDIR STA Administration Sodium Chloride 1,000 mls @ 1,000 mls/hr 04/30/19 15:15 04/30/19 15:20 Normal Saline - IV 04/30/19 16:14 1,000 mls/hr ASDIR STA Administration Sodium Chloride 1,000 mls @ 1,000 mls/hr 04/30/19 17:43 04/30/19 17:51 Normal Saline - IV 04/30/19 18:42 1,000 mls/hr ASDIR STA Administration Metoclopramide HCl 10 mg 04/30/19 16:15 04/30/19 16:22 Reglan Injection - IVPUSH 04/30/19 16:16 10 mg ONCE ONE Administration Morphine Sulfate 2 mg 04/30/19 16:40 04/30/19 16:53 Morphine Injection - IVPUSH 04/30/19 16:41 2 mg ONCE ONE Administration Ondansetron HCl 4 mg 04/30/19 13:34 04/30/19 13:50 Zofran Injection IVPB 04/30/19 13:35 4 mg ONCE ONE Administration Medical Decision Making - Medical Decision Making 04/30/19 20:35 Vital Signs Temp Pulse Resp BP Pulse Ox 98.8 F 102 H 18 121/84 100 04/30/19 12:50 04/30/19 12:50 04/30/19 12:50 04/30/19 12:50 04/30/19 12:50 [pt signed out from Dr Herman pending labs/repeat lactic and reeval Vitals reviewed, within normal limits, initially mild tachycardic but likely from dehydration and component of gastroenteritis. Hemodynamically stable, nontoxic-appearing and afebrile. Laboratory results with initial lactic acidosis, after fluids and therapy has come down to 0.9. initial hyperglycemia , since down trended, is diabetic, told to c/w meds and check his sugar. VS rechecked, improved, afebrile. He is remaining well-appearing, abdomen is soft and nontender, no peritoneal findings. Will Rx Zofran as needed for nausea/vomiting, bland diet and advance as tolerated, most likely gastroenteritis and follow-up with primary care doctor and GI specialist. supportive measures, otc analgesia, such as tylenol/motrin, zofran prn, pepcid, maalox, expectant management. Pt to be discharged in stable condition. Patient made aware of clinical impression, treatment recommendations and disposition plan, return precautions discussed (including but not limited to new or persistent/worsening symptoms, pain, fevers, or signs of infection, chest pain, respiratory distress, inability to tolerate oral intake, dehydration, syncope, or neurologic changes) . Follow up with PMD and/or specialist as recommended, follow up information provided, take medications as instructed for duration of time. continue with supportive care, avoid triggers and precipitants. All questions answered to patient's satisfaction and expressed understanding and comfort with this. At the time of discharge, the patient is alert, clinically improved, tolerating po and verbalizes understanding of instructions, satisfied with the care received and felt comfortable with the plan. Patient does not suffer from an acute life- threatening medical condition at this time and is safe for outpatient follow- up. 04/30/19 20:36 04/30/19 20:54 04/30/19 20:55 Discharge - Discharge Information Problems reviewed: Yes Clinical Impression/Diagnosis: Abdominal pain Qualifiers: Abdominal location: unspecified location Qualified Code(s): R10.9 - Unspecified abdominal pain Nausea & vomiting Qualifiers: Vomiting type: unspecified Vomiting Intractability: unspecified Qualified Code( s): R11.2 - Nausea with vomiting, unspecified Condition: Good Disposition: HOME - Admission No - Additional Discharge Information Prescriptions: Ondansetron HCl [Zofran] 4 mg PO TID PRN #9 tablet PRN Reason: nausea and vomiting - Follow up/Referral Referrals: Devin Yeager MD [Primary Care Provider] - Saman Delgado DO [Staff Physician] - - Patient Discharge Instructions Patient Printed Discharge Instructions: DI for Viral Gastroenteritis -- Adult, DI for Abdominal Pain-Adult, Nausea and Vomiting-Adult Additional Instructions: 1) Please follow-up with your primary care doctor in the next 1-2 days. Please call tomorrow for for any urgent issues. 2) You were given a copy of the tests performed today. Please bring the results with you and review them with your primary care doctor. Your laboratory / imaging results were normal, and improved 3) If you have any worsening of symptoms or any other concerns please return to the ED immediately. Return if worsening symptoms including fevers, headache, vomiting, visual or hearing disturbances, abdominal pain, chest pain, shortness of breath, syncope, dehydration, inability to take things by mouth/vomiting, altered mental status, or worsening concerning symptoms. 4) Please continue taking your home medications as directed. your medications on discharge include zofran three times a day as needed . side effects may include upset stomach, abdominal pain, vomiting, or diarrhea. do not drink alcohol with your medications. - you can take maalox every 6 hours for upset stomach and burning - pepcid daily until you feel better - follow bland diet and advance as tolerated Stay well hydrated and rest adequately. Make an appointment. If you cannot follow-up with your primary care doctor please return to the ED - Post Discharge Activity
[2019-04-30 20:47] VITALS: BP 124/67; PULSE 86
== END 2019-04-30 20:55 | disposition home or self-care (01) ==
LOC: FER 12:50
PROC: 3E033NZ Introduction of Analgesics, Hypnotics, Sedatives into Peripheral Vein, Percutaneous Approach (ICD-10-PCS; principal; 2019-04-30)
PROC: 3E0337Z Introduction of Electrolytic and Water Balance Substance into Peripheral Vein, Percutaneous Approach (ICD-10-PCS; 2019-04-30)
PROC: 3E033GC Introduction of Other Therapeutic Substance into Peripheral Vein, Percutaneous Approach (ICD-10-PCS; 2019-04-30)
DX: R10.9 Unspecified abdominal pain (principal); R11.2 Nausea with vomiting, unspecified; E11.9 Type 2 diabetes mellitus without complications; I10 Essential (primary) hypertension; Z79.4 Long term (current) use of insulin
CPT/HCPCS: 36415; 80053; 81003; 81015; 82962; 83605; 83690; 85025; 99285-25; J0131; J7030